=== PATIENT | female | born 1990 | race Caucasian/White ===

== ENCOUNTER → 2017-08-12 | Outpatient (CLI) | payer BC, MEDICAID ==
--- NOTE | 2017-08-12 16:22 | Diagnostic Imaging Report ---
First trimester OB ultrasound. INDICATION: Dating. FINDINGS: There is a normal-appearing single intrauterine . An embryo is seen with cardiac activity at 179 beats per minute. The crown-rump length is at 10 weeks and 6 days. LEIGHA is 03/04/2018. There is no subchorionic hemorrhage. The left ovary demonstrates a dominant follicle measuring 2.4 CM. The right ovary is obscured by bowel gas. IMPRESSION: Live single intrauterine . Dictated by: Dictated on workstation # [id number]
== END ==
LOC: RAD 15:43
PROVIDERS: ATTEND Family Medicine
DX: Z34.01 Encounter for supervision of normal first pregnancy, first trimester (principal); Z3A.10 10 weeks gestation of pregnancy
CPT/HCPCS: 76801

== ENCOUNTER 2017-08-27 08:34 | Outpatient (RCR) | payer MEDICAID | END 2017-11-25 | disposition home or self-care (01) | LOC: CARD 08:34 | PROVIDERS: ATTEND Nurse Practitioner Family | DX: R00.2 Palpitations (principal) | CPT/HCPCS: 93225; 93226 ==

== ENCOUNTER → 2017-10-10 | Outpatient (CLI) | payer MEDICAID ==
--- NOTE | 2017-10-10 16:35 | Diagnostic Imaging Report ---
EXAM: OB ULTRASOUND COMPLETE. INDICATION: 27-year-old female, high risk . survey. TECHNIQUE: Multiple real-time grayscale images were obtained over the gravid uterus. COMPARISON: Ultrasound August 12, 2017. FINDINGS: Overview: Within the uterus there is a single living gestation in cephalic position. There is positive movement and heart motion. heart rate was identified at 146 beats per minute. The amniotic fluid index is subjectively normal. The placenta is anterior and without demonstrated previa. The cervical length is 3.5 cm. anatomic survey: There is limited intracranial visualization. There is no ventriculomegaly. The lateral ventricles measure up to 6 mm in diameter. Somewhat limited longitudinal and transverse images of the spine are grossly unremarkable. There is visualization of the stomach, kidneys and urinary bladder. The cardiac apex and stomach are on the same side of midline. There is a normal four-chamber view of the heart. There is a three-vessel cord with an unremarkable insertion into the abdominal wall. 4 extremities are seen. The upper lip is not demonstrated. Biometrical measurements are as follows: Biparietal 4.4 cm, age 19 weeks 2 days. Head circumference 16.7 cm, age 19 weeks 3 days. Abdominal circumference 14.0 cm, age 19 weeks 3 days. Femur length 3.1 cm, age 19 weeks 4 days. Sonographic estimate age: 19 weeks 3 days. Sonographic estimated date of delivery: 03/03/18. Estimated Weight: 292 gm (+/- 43 gm). LMP percentile: 54%. heart rate: 146 beats per minute. number: 1 of 1. IMPRESSION: 1. Single living intrauterine with approximate mean gestational age of 19 weeks 3 days. 2. No demonstrated abnormality. Dictated by: Dictated on workstation # [id number]
== END ==
LOC: RAD 15:19
PROVIDERS: ATTEND Family Medicine
DX: Z36.89 Encounter for other specified antenatal screening (principal); O09.92 Supervision of high risk pregnancy, unspecified, second trimester; Z3A.19 19 weeks gestation of pregnancy
CPT/HCPCS: 76805

== ENCOUNTER → 2017-11-11 | Outpatient (CLI) | payer MEDICAID ==
--- NOTE | 2017-11-11 13:09 | Diagnostic Imaging Report ---
INDICATION: Followup intracranial structures, spine and lip. TECHNIQUE: Multiple real-time grayscale images were obtained over the gravid uterus. COMPARISON: 10/10/2017. FINDINGS: There is a single live fetus in a breech presentation. The placenta is anterior. The amniotic fluid volume is normal. heart rate was recorded at 143 beats per minute. head anatomy is unremarkable. The cervical and thoracic spine are unremarkable. Lumbar spine was not well visualized on today's study. Upper lip also was not well visualized due to hands obstructing visualization. IMPRESSION: No significant abnormality is seen, however, a lumbar spine as well as a upper lip was not well visualized, as described above. Followup could be performed. Dictated by: Dictated on workstation # [id number]
== END ==
LOC: RAD 11:56
PROVIDERS: ATTEND Family Medicine
DX: O09.92 Supervision of high risk pregnancy, unspecified, second trimester (principal); Z3A.23 23 weeks gestation of pregnancy
CPT/HCPCS: 76816

== ENCOUNTER → 2017-11-17 | Outpatient (CLI) | payer MEDICAID ==
--- NOTE | 2017-11-17 19:32 | Diagnostic Imaging Report ---
INDICATION: Cervix assessment. TECHNIQUE: Multiple real-time grayscale images were obtained over the gravid uterus. COMPARISON: None FINDINGS: Limited obstetrical ultrasonography reveals oliver breech intrauterine fetus. Placenta is grade 2 and anterior without evidence of previa. cardiac activity is present with a rate of 149 beats per minute. Cervical length is measured to be 3.7 cm. Limited anatomic survey reveals no evidence of spinal, lip, or palate abnormality. IMPRESSION: No or placental anomalies identified. Dictated on workstation # [id number]
== END ==
LOC: RAD 10:08
PROVIDERS: ATTEND Family Medicine
DX: O09.92 Supervision of high risk pregnancy, unspecified, second trimester (principal); Z3A.24 24 weeks gestation of pregnancy
CPT/HCPCS: 76816

== ENCOUNTER 2018-01-26 16:18 | Observation (INO) | payer MEDICAID ==
[~2018-01-26] VITALS: Ht 162.6 cm; Wt 68.0 kg
--- OUTSIDE RECORDS SUMMARY | 2018-01-26 16:22 | XMS REPORT | Continuity of Care Document ---
Author Author [facility] Organization [facility] Address Unknown Phone Unavailable Allergies Active Description Code Type Severity Reaction Onset Reported/Identified Relationship to Patient Clinical Status Yes No Known Drug Allergies [id number] Drug Allergy Unknown N/A 07/22/2014 Medications There is no data. Problems Date Dx Coded Attending Type Code Diagnosis Diagnosed By 2014 LATRELL BRADY MD A Ot 710.0 2014 LATRELL BRADY MD A Ot 780.2 2014 LATRELL BRADY MD A Ot 710.0 2014 LATRELL BRADY MD A Ot 780.2 2014 LATRELL BRADY MD A Ot 785.1 08/11/2014 LATRELL BRADY MD A Ot 710.0 08/11/2014 LATRELL BRADY MD A Ot 780.2 08/25/2014 CAITLYN ROMEO, LATRELL A Ot 710.0 08/25/2014 LATRELL BRADY MD A Ot 780.2 08/25/2014 LATRELL BRADY MD A Ot 710.0 08/25/2014 LATRELL BRADY MD A Ot 780.2 08/25/2014 LATRELL BRADY MD A Ot 710.0 08/25/2014 LATRELL BRADY MD A Ot 780.2 08/25/2014 LATRELL BRADY MD Ot 785.1 10/18/2014 LATRELL BRADY MD Ot 710.0 SYST LUPUS ERYTHEMATOSIS 10/18/2014 LATRELL BRADY MD Ot 780.2 SYNCOPE AND COLLAPSE 10/18/2014 LATRELL BRADY MD Ot 785.1 PALPITATIONS 11/02/2014 LATRELL BRADY MD Ot 710.0 11/02/2014 LATRELL BRADY MD Ot 780.2 11/02/2014 LATRELL BRADY MD Ot 710.0 11/02/2014 LATRELL BRADY MD A Ot 780.2 11/02/2014 LATRELL BRADY MD Ot 710.0 11/02/2014 CAITLYN ROMEO, LATRELL A Ot 780.2 11/02/2014 CAITLYN ROMEO, LATRELL A Ot 785.1 11/02/2014 CAITLYN ROMEO, LATRELL A Ot 710.0 11/02/2014 CAITLYN ROMEO, LATRELL A Ot 780.2 11/08/2014 CAITLYN ROMEO, LATRELL A Ot 710.0 11/08/2014 CAITLYN ROMEO, LATRELL A Ot 780.2 11/08/2014 CAITLYN ROMEO, LATRELL A Ot 710.0 11/08/2014 LATRELL BRADY MD A Ot 780.2 08/11/2017 LATRELL BRADY MD A Ot 710.0 SYST LUPUS ERYTHEMATOSIS 08/11/2017 LATRELL BRADY MD A Ot 780.2 SYNCOPE AND COLLAPSE 08/11/2017 LATRELL BRADY MD A Ot 710.0 SYST LUPUS ERYTHEMATOSIS 08/11/2017 LATRELL BRADY MD A Ot 780.2 SYNCOPE AND COLLAPSE 08/11/2017 LATRELL BRADY MD A Ot 710.0 SYST LUPUS ERYTHEMATOSIS 08/11/2017 LATRELL BRADY MD A Ot 780.2 SYNCOPE AND COLLAPSE 08/11/2017 LATRELL BRADY MD A Ot 785.1 PALPITATIONS 08/12/2017 LATRELL BRADY MD A Ot 710.0 SYST LUPUS ERYTHEMATOSIS 08/12/2017 LATRELL BRADY MD A Ot 780.2 SYNCOPE AND COLLAPSE 08/12/2017 LATRELL BRADY MD A Ot 710.0 SYST LUPUS ERYTHEMATOSIS 08/12/2017 LATRELL BRADY MD A Ot 780.2 SYNCOPE AND COLLAPSE 08/12/2017 LATRELL BRADY MD A Ot 710.0 SYST LUPUS ERYTHEMATOSIS 08/12/2017 LATRELL BRADY MD A Ot 780.2 SYNCOPE AND COLLAPSE 08/12/2017 LATRELL BRADY MD A Ot 785.1 PALPITATIONS 08/13/2017 PETROS WILSON MD Ot Z34.81 ENCOUNTER FOR SUPRVSN OF NORMAL PREGNANC 08/13/2017 PETROS WILSON MD Ot Z3A.10 10 WEEKS GESTATION OF 08/26/2017 LATRELL BRADY MD A Ot 710.0 SYST LUPUS ERYTHEMATOSIS 08/26/2017 LATRELL BRADY MD A Ot 780.2 SYNCOPE AND COLLAPSE 08/26/2017 LATRELL BRADY MD A Ot 710.0 SYST LUPUS ERYTHEMATOSIS 08/26/2017 LATRELL BRADY MD A Ot 780.2 SYNCOPE AND COLLAPSE 08/26/2017 LATRELL BRADY MD Ot 710.0 SYST LUPUS ERYTHEMATOSIS 08/26/2017 LATRELL BRADY MD A Ot 780.2 SYNCOPE AND COLLAPSE 08/26/2017 LATRELL BRADY MD Ot 785.1 PALPITATIONS 08/26/2017 PETROS WILSON MD Ot Z34.01 ENCNTR FOR SUPRVSN OF NORMAL FIRST PREG, 08/26/2017 PETROS WILSON MD Ot Z3A.10 10 WEEKS GESTATION OF 08/26/2017 PETROS WILSON MD Ot Z34.01 ENCNTR FOR SUPRVSN OF NORMAL FIRST PREG, 08/26/2017 PETROS WILSON MD Ot Z3A.10 10 WEEKS GESTATION OF 08/27/2017 LATRELL BRADY MD A Ot 710.0 SYST LUPUS ERYTHEMATOSIS 08/27/2017 LATRELL BRADY MD A Ot 780.2 SYNCOPE AND COLLAPSE 08/27/2017 LATRELL BRADY MD A Ot 710.0 SYST LUPUS ERYTHEMATOSIS 08/27/2017 LATRELL BRADY MD A Ot 780.2 SYNCOPE AND COLLAPSE 08/27/2017 LATRELL BRADY MD A Ot 710.0 SYST LUPUS ERYTHEMATOSIS 08/27/2017 LATRELL BRADY MD A Ot 780.2 SYNCOPE AND COLLAPSE 08/27/2017 LATRELL BRADY MD Ot 785.1 PALPITATIONS 08/27/2017 PETROS WILSON MD Ot Z34.01 ENCNTR FOR SUPRVSN OF NORMAL FIRST PREG, 08/27/2017 PETROS WILSON MD Ot Z3A.10 10 WEEKS GESTATION OF 08/28/2017 YASH FRAGA PUBLIC SERVICE OFFICER Ot R00.2 PALPITATIONS 08/28/2017 YASH FRAGA PUBLIC SERVICE OFFICER Ot R00.2 PALPITATIONS 10/10/2017 YASH FRAGA [employer] SERVICE OFFICER Ot R00.2 PALPITATIONS 10/13/2017 PETROS WILSON MD Ot O09.92 SUPERVISION OF HIGH RISK , [facility] 10/13/2017 PETROS WILSON MD Ot Z36.89 ENCOUNTER FOR OTHER SPECIFIED 10/13/2017 PETROS WILSON MD Ot Z3A.19 19 WEEKS GESTATION OF 10/22/2017 PETROS WILSON MD Ot O09.92 SUPERVISION OF HIGH RISK , [facility] 10/22/2017 PETROS WILSON MD Ot Z36.89 ENCOUNTER FOR OTHER SPECIFIED 10/22/2017 PETROS WILSON MD Ot Z3A.19 19 WEEKS GESTATION OF 11/12/2017 PETROS WILSON MD Ot O09.92 SUPERVISION OF HIGH RISK , [facility] 11/12/2017 PETROS WILSON MD Ot Z3A.23 23 WEEKS GESTATION OF 11/12/2017 PETROS WILSON MD Ot O09.92 SUPERVISION OF HIGH RISK , [facility] 11/12/2017 PETROS WILSON MD Ot Z3A.23 23 WEEKS GESTATION OF 11/17/2017 PETROS WILSON MD Ot O09.92 SUPERVISION OF HIGH RISK , [facility] 11/17/2017 PETROS WILSON MD Ot Z3A.23 23 WEEKS GESTATION OF 11/18/2017 PETROS WILSON MD Ot O09.92 SUPERVISION OF HIGH RISK , [facility] 11/18/2017 PETROS WILSON MD Ot Z3A.24 24 WEEKS GESTATION OF 11/25/2017 YASH FRAGA PUBLIC SERVICE OFFICER Ot R00.2 PALPITATIONS 11/26/2017 YASH FRAGA PUBLIC SERVICE OFFICER Ot R00.2 PALPITATIONS 11/28/2017 PETROS WILSON MD Ot O09.92 SUPERVISION OF HIGH RISK , [facility] 11/28/2017 PETROS WILSON MD Ot Z3A.23 23 WEEKS GESTATION OF 12/04/2017 PETROS WILSON MD Ot O09.92 SUPERVISION OF HIGH RISK , [facility] 12/04/2017 PETROS WILSON MD Ot Z3A.24 24 WEEKS GESTATION OF Procedures There is no data. Results There is no data. Encounters ACCT No. Visit Date/Time Discharge Status Pt. Type Provider Facility Loc./Unit Complaint [id number] 01/09/2018 12:31:00 01/09/2018 23:59:59 CLS Preadmit PETROS WILSON MD [facility] RAD HIGH RISK IN THIRD TRIMESTER [id number] 11/26/2017 08:30:00 11/26/2017 23:59:59 CLS Preadmit PHILLY YASH R [employer] SERVICE OFFICER [facility] CARD R00.2 [id number] 08/27/2017 08:34:00 11/25/2017 00:01:00 DIS Outpatient YASH FRAGA [employer] OFFICER [facility] CARD R00.2 [id number] 11/17/2017 10:08:00 11/17/2017 23:59:59 CLS Outpatient PETROS WILSON MD [facility] RAD O09.92 HIGH-RISK IN 2ND TRIMESTER [id number] 11/11/2017 11:56:00 11/11/2017 23:59:59 CLS Outpatient PETROS WILSON MD [facility] RAD HIGH RISK [id number] 10/10/2017 15:19:00 10/10/2017 23:59:59 CLS Outpatient PETROS WILSON MD [facility] RAD O09.92 HIGH RISK -2ND TRIMESTER [id number] 08/12/2017 15:43:00 08/12/2017 23:59:59 CLS Outpatient PETROS WILSON MD [facility] RAD Z34.00 [id number] 10/19/2014 10:00:00 10/19/2014 23:59:59 CLS Preadmit LATRELL BRADY MD [facility] CARD SYNCOPE,LUPUS [id number] 07/20/2014 09:53:00 10/18/2014 00:01:00 DIS Outpatient LATRELL BRADY MD [facility] CARD SYNCOPE,LUPUS [id number] 07/25/2014 07:56:00 07/25/2014 23:59:59 CLS Outpatient LATRELL BRADY MD [facility] RT SYNCOPE LUPUS [id number] 07/22/2014 07:46:00 07/22/2014 23:59:59 CLS Outpatient LATRELL BRADY MD [facility] RAD SYNCOPE LUPUS [id number] 02/02/2018 12:45:00 PETROS Narvaez MD [facility] RAD HIGH RISK THIRD TRIMESTER [id number] 01/26/2018 12:45:00 PETROS Narvaez MD [facility] RAD HIGH RISK THIRD TRIMESTER
[2018-01-26 16:30] VITALS: BP 126/74
[2018-01-26 17:26] LABS: HEMOGLOBIN 10.8 G/DL (11.5-16.0); MEAN PLATELET VOLUME 9.6 FL (7.4-10.4); RED BLOOD COUNT 3.71 10^6/uL (4.35-5.85); RED CELL DISTRIBUTION WIDTH 13.4 % (10.0-14.5); WHITE BLOOD COUNT 6.3 10^3/uL (4.3-11.0)
[2018-01-26] MEDS ORDERED: PREN-55 PO (17:45)
[2018-01-26] MEDS ORDERED: SERT25TA PO (17:45)
[2018-01-26 17:47] LABS: ALANINE AMINOTRANSFERASE 8 U/L (0-55); ALBUMIN 3.2 GM/DL (3.2-4.5); ALKALINE PHOSPHATASE 175 U/L (40-136); BILIRUBIN,TOTAL 0.4 MG/DL (0.1-1.0); BUN/CREATININE RATIO 12; CALCIUM 8.9 MG/DL (8.5-10.1); CARBON DIOXIDE 23 MMOL/L (21-32); CHLORIDE 108 MMOL/L (98-107); CREATININE SERUM 0.68 MG/DL (0.60-1.30); GFR ESTIMATED > 60; GLUCOSE 106 MG/DL (70-105); POTASSIUM 3.7 MMOL/L (3.6-5.0); SODIUM 136 MMOL/L (135-145); TOTAL PROTEIN 5.9 GM/DL (6.4-8.2)
[2018-01-26 19:42] VITALS: BP 119/73
[2018-01-27 08:15] VITALS: BP 123/71
--- NOTE | 2018-01-27 10:11 | Diagnostic Imaging Report ---
EXAMINATION: Biophysical profile. INDICATION: well-being. FINDINGS: The OB ultrasound exam and biophysical profile score performed on 01/26/2018 noted that the biophysical profile score was only 4 out of 8 as breathing and posture/tone could not be established. On this exam, the fetus is again visualized. The fetus is cephalic in presentation. heart motion was noted and a rate of 133 BPM was recorded. The biophysical profile score is now 8 out of 8 and within normal limits. The amniotic fluid index is 8.9 CM (normal 8-22 CM). The placenta is anterior and there is no previa. IMPRESSION: 1. The biophysical profile score has increased since the prior exam and is now 8 out of 8 and within normal limits. 2. There is a single live fetus is cephalic presentation. Dictated by: Dictated on workstation # [id number]
--- NOTE | 2018-01-27 10:44 | Short Stay Summary ---
History of Present Illness History of Present Illness Reason for visit/HPI G1 at 34w4d with history of inactive lupus admitted for observation due to non- reassuring BPP (12/28, no breathing or tone demonstrated). She has felt movement all morning and again after BPP but notes baby was still during time frame of BPP. NILDA was normal. Date of Admission January 26, 2018 at 4:18 pm Date of Discharge January 27, 2018 Time Seen by Provider: 14:00 Attending Physician Rosana Thorne MD Admitting Physician Marivel Sandoval DO Consult Allergies and Home Medications Allergies Coded Allergies: No Known Drug Allergies (Unverified , 07/22/14) Home Medications Vit/Iron Fumarate/FA 1 Each Tablet, 1 EACH PO DAILY, (Reported) Sertraline HCl 25 Mg Tablet, 25 MG PO DAILY, (Reported) Patient Home Medication List Home Medication List Reviewed: Yes Past Dnzxsxp-Bthnzi-Eqrubh Hx Patient Social History Alcohol Use: Denies Use Recreational Drug Use: No Smoking Status: Never a Smoker Physical Abuse Screen: No Sexual Abuse: No Recent Foreign Travel: No Contact w/other who traveled: No Recent Infectious Disease Expo: No Reproductive System : Yes Hx : 1 Hx Para: 0 Hx Reproductive Disorders: No Sexually Transmitted Disease: No HIV/AIDS: No Musculoskeletal Yes (Lupus) Psychosocial History of Psychiatric Problem: Yes Behavioral Health Disorders: Anxiety Family Medical History Significant Family History: No Pertinent Family Hx Constitutional: no symptoms reported Physical Exam Vital Signs Vital Signs - First Documented 01/26/18 01/27/18 16:30 08:15 Temp 98.9 Pulse 82 Resp 18 B/P (MAP) 126/74 (91) Pulse Ox 98 O2 Delivery Room Air Capillary Refill : General Appearance: No Apparent Distress Gastrointestinal: Other (gravid, nontender) Extremity: No Pedal Edema Neurologic/Psychiatric: Alert, Oriented x3 Skin: Normal Color, Warm/Dry Short Stay Diagnosis Discharge Diagnosis-Short Stay Admission Diagnosis: 34 weeks gestation/Third trimester Lupus Non-reassuring biophysical profile Final Discharge Diagnosis: 34 weeks gestation/Third trimester Lupus Reassuring overnight heart monitoring and normal Biophysical profile on am of discharge Conclusion Labs Laboratory Tests 01/26/18 17:15: White Blood Count 6.3, Red Blood Count 3.71L, Hemoglobin 10.8L, Hematocrit 31L, Mean Corpuscular Volume 84, Mean Corpuscular Hemoglobin 29, Mean Corpuscular Hemoglobin Concent 35, Red Cell Distribution Width 13.4, Platelet Count 238, Mean Platelet Volume 9.6, Sodium Level 136, Potassium Level 3.7, Chloride Level 108H, Carbon Dioxide Level 23, Anion Gap 5, Blood Urea Nitrogen 8, Creatinine 0.68, Estimat Glomerular Filtration Rate > 60, BUN/Creatinine Ratio 12, Glucose Level 106H, Calcium Level 8.9, Total Bilirubin 0.4, Aspartate Amino Transf (AST/ SGOT) 16, Alanine Aminotransferase (ALT/SGPT) 8, Alkaline Phosphatase 175H, Total Protein 5.9L, Albumin 3.2 Conclusion/Plan Monitoring unremarkable and repeat BPP normal, will continue weekly BPPs. Copy Copies To 1: PETROS WILSON MD, BETHANY N MD January 27, 2018 10:44 am
[2018-01-27 11:02] VITALS: BP 123/71
== END 2018-01-27 10:53 | disposition home or self-care (01) ==
LOC: UNDOADMOB 16:18 → LDRP 16:18 → UNDODISOB 01-27 11:02
PROVIDERS: ADMIT Family Medicine; ATTEND Family Medicine
DX: O28.3 Abnormal ultrasonic finding on antenatal screening of mother (principal); O26.893 Other specified pregnancy related conditions, third trimester; M32.9 Systemic lupus erythematosus, unspecified; Z3A.34 34 weeks gestation of pregnancy
CPT/HCPCS: 36415; 76819; 80053; 85027; 99211; G0378

== ENCOUNTER → 2018-01-26 | Outpatient (CLI) | payer MEDICAID ==
[~2018-01-26] MED LIST: IBUP-844 PO; PREN-55 PO; SERT25TA PO
--- NOTE | 2018-01-26 16:05 | Diagnostic Imaging Report ---
INDICATION: TECHNIQUE: Multiple real-time grayscale images were obtained over the gravid uterus. COMPARISON: 08/12/2017, 10/10/2017, 11/11/2017, and 11/17/2017. FINDINGS: The previous OB ultrasound exam of 11/17/2017 noted a single live fetus of approximately 24 weeks 5 days gestation +/- 1 week. The EDC was 03/04/2018. There were no abnormalities identified. On this exam, the fetus is again visualized. The fetus is cephalic in presentation and heart motion was noted with a rate of 146 bpm recorded. The growth parameters are fairly uniform and have progressed as expected since the prior study. There are no abnormalities identified. The biophysical profile score however is below normal limits at 4 out of 8. breathing and posture/tone could not be established. The amniotic fluid index is 9.8 (8-22 cm). IMPRESSION: 1. There is a single live fetus in cephalic presentation approximately 34 weeks 3 days gestation +/- 1 week. The EDC remains March 04, 2018. 2. There were no abnormalities identified, but the biophysical profile score is only 4/8. 3. These results were given to SHERON Ny, by our sonologist. Dictated by: Dictated on workstation # [id number]
== END ==
LOC: RAD 11:53
PROVIDERS: ATTEND Family Medicine
DX: O09.93 Supervision of high risk pregnancy, unspecified, third trimester (principal); Z3A.34 34 weeks gestation of pregnancy
CPT/HCPCS: 76805; 76819

== ENCOUNTER 2018-02-12 12:37 | Outpatient (RCR) | payer MEDICAID ==
--- NOTE | 2018-02-02 15:21 | Diagnostic Imaging Report ---
INDICATION: High-risk . FINDINGS: Biophysical profile was performed. There is a single live fetus in a cephalic presentation. heart rate was recorded at 134 beats per minute. Placenta is anterior. The amniotic fluid index is 8.9 cm. Overall biophysical profile score is normal at 8 out 8. IMPRESSION: Normal biophysical profile score 8 out of 8. Dictated by: Dictated on workstation # [id number]
[~2018-02-12 12:37] MED LIST changes: -IBUP-844 PO
--- NOTE | 2018-02-12 19:32 | Diagnostic Imaging Report ---
INDICATION: High-risk . FINDINGS: Biophysical profile was performed. There is a single live fetus in a cephalic presentation. heart rate is recorded at 146 beats per minute. The placenta is anterior. Amniotic fluid index is 6.7 cm. Biophysical profile score is normal at 8 out 8. IMPRESSION: Normal biophysical profile score of 8 out of 8. Note is made that the amniotic fluid index is slightly low at 6.7 cm. Results were called to Dr. Espinosa by the technologist at the time of the exam. Dictated by: Dictated on workstation # [id number]
--- NOTE | 2018-02-17 14:15 | Diagnostic Imaging Report ---
INDICATION: High-risk . FINDINGS: Biophysical profile was performed. There is a single live fetus in a cephalic presentation. heart rate is recorded at 135 beats per minute. The placenta is anterior. Amniotic fluid index is 7.2 cm. Biophysical profile score is 8 out of 8. IMPRESSION: biophysical profile score is 8 out of 8. Dictated by: Dictated on workstation # [id number]
[2018-02-25] MEDS ORDERED: IBUP-844 PO (10:33)
== END 2018-05-03 | disposition home or self-care (01) ==
LOC: RAD 12:37
PROVIDERS: ATTEND Family Medicine
DX: O09.93 Supervision of high risk pregnancy, unspecified, third trimester (principal); Z3A.00 Weeks of gestation of pregnancy not specified
CPT/HCPCS: 76819

== ENCOUNTER 2018-02-23 02:39 | Inpatient (IN) | payer MEDICAID ==
[~2018-02-23] VITALS: Ht 162.6 cm; Wt 73.0 kg
[2018-02-23] VITALS (52 sets, daily range): BP systolic 96–158; BP diastolic 54–102
[2018-02-23] MEDS ORDERED: MINERAL OIL CONCENTRATE 99.9% 15 ML UDC TOP PRN (03:15)
[2018-02-23] MEDS ORDERED: NS (IVPB) 100 ML ONE (03:30)
[2018-02-23] MEDS ORDERED: AMPICILLIN 2000 MG INJECTION (IM/IV) ONE (03:30)
[2018-02-23 03:37] LABS: BASOPHILS % (AUTO) 0 % (0-10); EOSINOPHILS % (AUTO) 0 % (0-10); HEMATOCRIT 33 % (35-52); HEMOGLOBIN 11.7 G/DL (11.5-16.0); LYMPHOCYTES % (AUTO) 26 % (12-44); MEAN CORPUSCULAR HEMOGLOBIN 30 PG (25-34); MEAN CORPUSCULAR HGB CONC 35 G/DL (32-36); MEAN CORPUSCULAR VOLUME 84 FL (80-99); MEAN PLATELET VOLUME 11.2 FL (7.4-10.4); MONOCYTES # (AUTO) 0.6 X 10^3 (0.0-1.0); MONOCYTES % (AUTO) 8 % (0-12); NEUTROPHILS % (AUTO) 65 % (42-75); PLATELET COUNT 214 10^3/uL (130-400); RED BLOOD COUNT 3.97 10^6/uL (4.35-5.85); RED CELL DISTRIBUTION WIDTH 13.4 % (10.0-14.5); WHITE BLOOD COUNT 7.6 10^3/uL (4.3-11.0)
[2018-02-23] MEDS: D5 LR IV SOLUTION 1,000 ML IV SCH ×2 (03:41→10:10)
[2018-02-23] MEDS: AMPICILLIN INJECTION 2,000 MG in NS (IVPB) 50 ML IV SCH ×2 (03:43→08:25)
[2018-02-23] MEDS ORDERED: LACTATED RINGERS 1,000 ML IV ONE (03:52)
[2018-02-23] MEDS ORDERED: LACTATED RINGERS 1,000 ML IV SCH (04:50)
[2018-02-23] MEDS ORDERED: METOCLOPRAMIDE INJ 10 MG/2 ML (REGLAN) IV PRN (05:00)
[2018-02-23] MEDS ORDERED: diphenhydrAMINE 50 MG/ML INJ (BENADRYL) IV PRN (05:00)
[2018-02-23] MEDS ORDERED: EPIDURAL (SUFENTA 0.6MCG/ML BUPIVA 0.125%) 100 ML BAG EPI SCH (05:00)
[2018-02-23] MEDS ORDERED: NALOXONE 0.4 MG/ML 1 ML (NARCAN) VIAL IV PRN ×2 (05:00)
[2018-02-23] MEDS ORDERED: ONDANSETRON 4 MG/2 ML (SDV) Z0FRAN IV PRN (05:00)
[2018-02-23] MEDS ORDERED: LIDOCAINE PF 2% 5 ML (XYLOCAINE) VIAL ONE (05:21)
[2018-02-23] MEDS ORDERED: BUPIVACAINE 0.25% 30 ML (SENSORCAINE) VIAL ONE (05:21)
[2018-02-23] MEDS ORDERED: fentaNYL INJECTION 100 MCG/2 ML AMP ONE (05:21)
[2018-02-23] MEDS ORDERED: CATHETER FLUSH 10 ML SYR IV SCH ×2 (06:00→22:00)
[2018-02-23] MEDS ORDERED: AMPICILLIN INJECTION 1,000 MG in NS (IVPB) 50 ML IV SCH (07:15)
--- NOTE | 2018-02-23 08:46 | History & Physical-OB ---
OB - Chief Complaint & HPI Date/Time Date of Admission: Date of Admission: Feb 23, 2018 at 03:10 Time Seen by Provider: 08:10 Chief Complaint/History OB-Reason for Admission/Chief: Rupture of Membranes Hx : 1 Hx Para: 0 Expected Date of Delivery: Mar 04, 2018 Gestational Age in Weeks: 38 Gestational Age in Days: 4 Admission Nurse Assessment Rev: Yes History of Labs O+, antibody neg, RI. HIV/HepB/RPR NR. GC/chlamydia neg. GBS bacteriuria. Normal cell free DNA testing. Normal glucola. History of inactive lupus not on medication- Negative lupus anticoagulant, anti-SSA, anti-SSB, cardiolipin and beta 2 glycoprotein. C3/C4 normal. Indeterminate dsDNA antibody. No significant proteinuria in each trimester and nml chem 12 each trimester. Allergies and Home Medications Allergies Coded Allergies: No Known Drug Allergies (Unverified , 07/22/14) Home Medications Vit/Iron Fumarate/FA 1 Each Tablet, 1 EACH PO DAILY, (Reported) Sertraline HCl 25 Mg Tablet, 25 MG PO DAILY, (Reported) Patient Home Medication List Home Medication List Reviewed: Yes OB - History Hx of Present Care: Yes Ultrasounds: Normal mid trimester US Obstetrical Complications: Autoimmune Disease (inactive lupus, not on treatment , see labs) Medical Complications: Psychiatric (despression, on sertraline) Information Induced Hypertension: No Maternal Gestational Diabetes: No Hemorrhage: No Obstetrical History Hx : 1 Hx Para: 0 Hx # Term Pregnancies: 0 Hx # Pregnancies: 0 Number of Living Children: 0 Hx Termination: No Hx Total # of Abortions (Spona: 0 Hx Multiple Gestation: No Hx Ectopic : No Hx Stillbirth: No Hx Complication: No Hx Induced Hypertens: No Hx Maternal Gestational Diabet: No Hx Hemorrhage: No Delivery History Adverse Rxn to Tranfusion: No Patient Past Medical History PMHx: Lupus Depression SugHx: Breast biopsy Social History/Family History HIV/AIDS: No Recent Infectious Disease Expo: No Sexually Transmitted Disease: No Alcohol Use: Denies Use Recreational Drug Use: No Smoking Cessation: Never smoker Significant Family Hx Father with chronic ITP Immunizations Tetanus Booster (TDap): Less than 5yrs Rubella: immune RPR/VDRL: Negative GBS Status: Positive HBsAG: Negative OB - Admission Exam Physical Exam Vitals: Vital Signs 02/23/18 02/23/18 06:15 07:00 Temp 98.0 Pulse 87 Resp 18 B/P (MAP) 109/64 (79) Pulse Ox 97 O2 Delivery Room Air HEENT: NCAT Abdomen: Non tender Extremities: Normal Cervical Dilatation: 7cm Effacement: Other Station: -2 Amniotic Fluid: Clear Heart Rate: 140's Accelerations: Accelerations Present Central Services Tech Variability: Average (6-25) Contractions on Admission: < 5 Minutes Apart Labs Laboratory Tests Test 02/23/18 03:20 Range/Units White Blood Count 7.6 4.3-11.0 10^3/uL Red Blood Count 3.97 L 4.35-5.85 10^6/uL Hemoglobin 11.7 11.5-16.0 G/DL Hematocrit 33 L 35-52 % Mean Corpuscular Volume 84 80-99 FL Mean Corpuscular Hemoglobin 30 25-34 PG Mean Corpuscular Hemoglobin Concent 35 32-36 G/DL Red Cell Distribution Width 13.4 10.0-14.5 % Platelet Count 214 130-400 10^3/uL Mean Platelet Volume 11.2 H 7.4-10.4 FL Neutrophils (%) (Auto) 65 42-75 % Lymphocytes (%) (Auto) 26 12-44 % Monocytes (%) (Auto) 8 0-12 % Eosinophils (%) (Auto) 0 0-10 % Basophils (%) (Auto) 0 0-10 % Neutrophils # (Auto) 5.0 1.8-7.8 X 10^3 Lymphocytes # (Auto) 2.0 1.0-4.0 X 10^3 Monocytes # (Auto) 0.6 0.0-1.0 X 10^3 Eosinophils # (Auto) 0.0 0.0-0.3 10^3/uL Basophils # (Auto) 0.0 0.0-0.1 10^3/uL OB - Assessment/Plan/Diagnosis Assessment Assessment: active labor, group B positive strep, other (systemic lupus erythematosus, depression) Admission Dx TIUP at 38 weeks SROM with active labor SLE Depression O positive blood type Rubella immune GBS positive (bacteriuria) Admission Status: Inpatient Order (span 2 midnights) Reason for Inpatient Admission: Labor and delivery Plan Plan: Expectant Management Other Plan Ampicillin for GBS positive See lab section for lupus work-up- negative for anti-SSA and anti-SSB and seen by MFM and recommended chem 12 and 24 hour urine protein each trimester- all normal, weekly BPP since 34 weeks normal (initial abnormal, all normal since, most recent 04/29 with NILDA 7.2 6 days ago) as well as growth scan q4-6 weeks, last done at 34 weeks and normal (34w3d by measurement, consistent with dates) Copy Copies To 1: PETROS WILSON MD, BETHANY N MD Feb 23, 2018 08:46
[2018-02-23] MEDS ORDERED: LIDOCAINE/EPI 2% 1:200,00 (XYLOCAINE) 10 ML VIAL ONE (11:06)
[2018-02-23] MEDS ORDERED: OXYTOCIN/NORMAL SALINE 500 ML IV ONE (11:06)
[2018-02-23] MEDS ORDERED: MISOPROSTOL 200 MCG (CYTOTEC) TABLET ONE ×2 (11:48→11:50)
--- NOTE | 2018-02-23 12:28 | OB Labor & Delivery Record ---
Vag Delivery Note Vag Delivery Note Date of Delivery: 02/23/18 Preoperative Diagnosis: Devorah Lund is a (27 /Para 1 / 0, Gestational Age (wks)38with 4days Postoperative Diagnosis: Same Surgeon: PETROS WILSON Anesthesia: epidural Delivery Type: spontaneous vaginal Findings: Viable female , apgars 8/9, weight pending Lacerations: second degree perineal Intact placenta with 3 vessel cord. No nuchal cord, body cord or shoulder dystocia Cytotec 600 mcg placed for hemorrhage prophylaxis Estimated Blood Loss: 350 ml Complications: None Condition: Stable Description of Procedure: The patient is a G1 at 38w4d who presented after SROM at home. She was admitted and informed consent was obtained. Her labor course was remarkable for terminal bradycardia. She progressed to complete dilatation and began to push. She was then set up for delivery. The infant had bradycardia and in spite of good maternal pushing effort and progressive descent of 's head, the infant did not deliver and remained bradycardic, so mediolateral episiotomy was cut, after which the infant's head was delivered atraumatically in the RASHAUN position. The shoulders and remainder of the infant's body were then delivered without difficulty. Upon delivery, the infant cried immediately and was placed on maternal abdomen, then had secondary apnea. The cord was doubly clamped and cut and the infant was spontaneously crying again at that time and was stable to remain on maternal chest for recovery. An intact placenta with 3-vessel cord delivered via Angelito and there was found to be minimal bleeding.~ Vigorous fundal massage was performed and the fundus was found to be firm. IV oxytocin was given. Examination of the vagina and perineum revealed a second degree laceration repaired in the usual fashion with 3-0 rapide suture. Following the repair, sponge, instrument and needle counts were correct. Mom and baby were both in stable condition in the labor suite. Vitals - Labs Vital Signs - I&O Vital Signs 02/23/18 02/23/18 06:15 07:00 Temp 98.0 Pulse 87 Resp 18 B/P (MAP) 109/64 (79) Pulse Ox 97 O2 Delivery Room Air Labs Laboratory Tests 02/23/18 03:20: White Blood Count 7.6, Red Blood Count 3.97L, Hemoglobin 11.7, Hematocrit 33L, Mean Corpuscular Volume 84, Mean Corpuscular Hemoglobin 30, Mean Corpuscular Hemoglobin Concent 35, Red Cell Distribution Width 13.4, Platelet Count 214, Mean Platelet Volume 11.2H, Neutrophils (%) (Auto) 65, Lymphocytes (%) (Auto) 26 , Monocytes (%) (Auto) 8, Eosinophils (%) (Auto) 0, Basophils (%) (Auto) 0, Neutrophils # (Auto) 5.0, Lymphocytes # (Auto) 2.0, Monocytes # (Auto) 0.6, Eosinophils # (Auto) 0.0, Basophils # (Auto) 0.0 PETROS WILSON MD Feb 23, 2018 12:28 pm
[2018-02-23] MEDS ORDERED: OXYTOCIN/NORMAL SALINE 500 ML IV SCH (15:18)
[2018-02-23] MEDS ORDERED: WITCH HAZEL(TUCKS) 40 EA JAR TOP PRN (15:30)
[2018-02-23] MEDS ORDERED: BENZOCAINE/MENTHOL (DERMOPLAST) 56 ML CAN TP PRN (15:30)
[2018-02-23] MEDS ORDERED: MISOPROSTOL 200 MCG (CYTOTEC) TABLET PR NR (15:30)
[2018-02-23] MEDS: IBUPROFEN 600 MG (MOTRIN) TAB PO SCH ×2 (15:50→20:57)
[2018-02-24] VITALS: BP 133/73
[2018-02-24] MEDS: IBUPROFEN 600 MG (MOTRIN) TAB PO SCH ×4 (02:19→19:51)
[2018-02-24 04:30] VITALS: BP 131/84
[2018-02-24 06:09] LABS: BASOPHILS % (AUTO) 0 % (0-10); EOSINOPHILS % (AUTO) 0 % (0-10); HEMATOCRIT 31 % (35-52); HEMOGLOBIN 10.1 G/DL (11.5-16.0); LYMPHOCYTES % (AUTO) 27 % (12-44); MEAN CORPUSCULAR HEMOGLOBIN 29 PG (25-34); MEAN CORPUSCULAR HGB CONC 33 G/DL (32-36); MEAN CORPUSCULAR VOLUME 87 FL (80-99); MEAN PLATELET VOLUME 10.8 FL (7.4-10.4); MONOCYTES # (AUTO) 0.4 X 10^3 (0.0-1.0); MONOCYTES % (AUTO) 6 % (0-12); NEUTROPHILS # (AUTO) 5.1 X 10^3 (1.8-7.8); NEUTROPHILS % (AUTO) 67 % (42-75); PLATELET COUNT 164 10^3/uL (130-400); RED BLOOD COUNT 3.52 10^6/uL (4.35-5.85); RED CELL DISTRIBUTION WIDTH 13.9 % (10.0-14.5); WHITE BLOOD COUNT 7.5 10^3/uL (4.3-11.0)
[2018-02-24 08:20] VITALS: BP 130/86
[2018-02-24] MEDS: PRENATAL VITAMIN 1 EA TAB PO SCH (08:22)
[2018-02-24] MEDS: SERTRALINE 50 MG (ZOLOFT) TABLET PO SCH (08:24)
[2018-02-24] MEDS ORDERED: NON-FORMULARY MEDICATION 1 EA EA (Sertraline HCl (Zoloft) 25 MG) PO SCH (09:00)
[2018-02-24] MEDS ORDERED: NON-FORMULARY MEDICATION 1 EA EA (Prenatal Vit/Iron Fumarate/FA (Prenatal Tablet) 1 EACH) PO SCH (09:00)
--- NOTE | 2018-02-24 12:14 | Anesthesia-Regional Post-Op ---
Regional Patient Condition Mental Status: Alert, Oriented x3 Circulation: Same as Pre-Op Headache: Absent Sensation: Full Recovery Motor Block: Absent Post Op Complications Complications None Follow Up Care/Instructions Patient Instructions None needed. Anesthesia/Patient Condition Patient is doing well, no complaints, stable vital signs, no apparent adverse anesthesia problems. No complications reported per nursing. D/C home per [facility] [place] Criteria: No JUANPABLO HOLLINS CRNA Feb 24, 2018 12:14
[2018-02-24 14:45] VITALS: BP 127/76
[2018-02-24 19:51] VITALS: BP 126/79
--- NOTE | 2018-02-24 22:38 | Progress Note (SOAP) ---
Subjective Subjective/Events-last exam Mother doing well this AM. Breast feeding this AM. Lochia same as period. Tolerating PO diet and ambulation Review of Systems Date Seen by Provider: Feb 24, 2018 Time Seen by Provider: 11:20 Pulmonary: No Dyspnea, No Cough Cardiovascular: No: Chest Pain, Palpitations Gastrointestinal: No: Abdominal Pain Genitourinary: No Dysuria, No Frequency, No Incontinence Objective Exam Last Set of Vital Signs Vital Signs Date Time Temp Pulse Resp B/P (MAP) Pulse Ox O2 Delivery O2 Flow Rate FiO2 02/24/18 19:51 98.6 107 18 126/79 (95) 100 Room Air Capillary Refill : I&O Intake and Output 02/24/18 00:00 Intake Total 500 ml Output Total 1000 ml Balance -500 ml Intake Oral 500 ml Output Emesis 1000 ml # Voids 2 # Emeses 4 Daily Weight Change No General: Alert, Oriented X3, Cooperative, No Acute Distress HEENT: Mucous Memb Moist/[place] Lungs: Clear to Auscultation, Normal Air Movement Heart: Regular Rate, No Murmurs Abdomen: Normal Bowel Sounds, Soft, Other (fundus firm and below umbilicus) Extremities: No Edema Results/Procedures Lab Laboratory Tests 02/24/18 05:55: White Blood Count 7.5, Red Blood Count 3.52L, Hemoglobin 10.1L, Hematocrit 31L, Mean Corpuscular Volume 87, Mean Corpuscular Hemoglobin 29, Mean Corpuscular Hemoglobin Concent 33, Red Cell Distribution Width 13.9, Platelet Count 164, Mean Platelet Volume 10.8H, Neutrophils (%) (Auto) 67, Lymphocytes (%) (Auto) 27 , Monocytes (%) (Auto) 6, Eosinophils (%) (Auto) 0, Basophils (%) (Auto) 0, Neutrophils # (Auto) 5.1, Lymphocytes # (Auto) 2.0, Monocytes # (Auto) 0.4, Eosinophils # (Auto) 0.0, Basophils # (Auto) 0.0 Assessment/Plan Assessment/Plan Admission Status: Inpatient Order (span 2 midnights) Reason for Inpatient Admission: Labor (1) Normal vaginal delivery Status: Acute Assessment & Plan: - Routine care Clinical Quality Measures DVT/VTE Risk/Contraindication: Risk Factor Score Per Nursin RFS Level Per Nursing on Admit: 1=Low/No VTE PPX LATRELL BAUM MD Feb 24, 2018 10:38 pm
[2018-02-25 01:50] VITALS: BP 127/81
[2018-02-25] MEDS: IBUPROFEN 600 MG (MOTRIN) TAB PO SCH (04:36)
[2018-02-25 09:05] VITALS: BP 126/78
[2018-02-25] MEDS: SERTRALINE 50 MG (ZOLOFT) TABLET PO SCH (09:05)
[2018-02-25] MEDS: PRENATAL VITAMIN 1 EA TAB PO SCH (09:05)
--- NOTE | 2018-02-25 10:27 | Discharge Summary ---
Diagnosis/Chief Complaint Date of Admission Feb 23, 2018 at 03:10 Date of Discharge [address] Admission Diagnosis Admission Diagnosis Term Labor Discharge Diagnosis Uncomplicated Term , G2 now P2, HIV/RPR/HepB NR, Rub Imm Chief Complaint/HPI Chief Complaint/HPI Presented in active labor Discharge Summary-Simple/Stand Procedures Discharge Physical Examination Allergies: Coded Allergies: No Known Drug Allergies (Unverified , 07/22/14) Vitals & I&Os Vital Sign - Last 12Hours Date Time Temp Pulse Resp B/P (MAP) Pulse Ox O2 Delivery O2 Flow Rate FiO2 02/25/18 01:50 97.9 80 18 127/81 (96) 100 Room Air General Appearance: Alert, Oriented X3, Cooperative, No Acute Distress HEENT: Mucous Memb Moist/[place] Respiratory: Clear to Auscultation, Normal Air Movement Cardiovascular: Regular Rate, No Murmurs Abdominal: Normal Bowel Sounds, Soft, No Tenderness, No Hepatosplenomegaly, No Masses, Other (firm fundus below umbilicus) Extremities: No Edema, No Tenderness/Swelling Psych/Mental Status: Mental Status NL, Mood NL Hospital Course See final discharge diagnosis. Discussion & Recommendations 27 yo delivered term female via Discharge Condition at discharge stable Instructions to patient/family Please see electronic discharge instructions given to patient. Discharge Medications Reviewed and agree with Discharge Medication list on patient's Discharge Instruction sheet Clinical Quality Measures DVT/VTE Risk/Contraindication: Risk Factor Score Per Nursin RFS Level Per Nursing on Admit: 1=Low/No VTE PPX Copy Copies To 1: PETROS WILSON MD, HOLLY R MD Feb 25, 2018 10:27
[2018-02-25] MEDS ORDERED: IBUP-844 PO (10:33)
--- NOTE | 2018-02-25 10:37 | Discharge Instructions ---
Discharge Inst-Women's Serv Depart Medications New, Converted or Re-Newed RX: Transmitted to Pharmacy New Medications: Ibuprofen (Ibu) 600 Mg Tablet 600 MG PO Q6H, #90 TAB Continued Medications: Vit/Iron Fumarate/FA ( Tablet) 1 Each Tablet 1 EACH PO DAILY, TAB Sertraline HCl (Zoloft) 25 Mg Tablet 25 MG PO DAILY, TAB Follow Up/Instructions Goal/Follow Up: [address] [place] Activity Activity: Activity as Tolerated Driving Instructions: You May Drive Nothing Inside Vagina: No Douching, No [place], No Tampons Diet Discharge Diet: No Restrictions Symptoms to Report to : Bleeding Excessive, Lightheadedness, Shortness of Breath For Any Problems or Questions: Contact Your Physician Copies To 1: PETROS WILSON MD, HOLLY R MD Feb 25, 2018 10:37
== END 2018-02-25 13:20 | disposition home or self-care (01) | DRG 775 ==
LOC: LDRP 02:39 → WSo 02:39 → LDRP 03:10
PROVIDERS: ADMIT Family Medicine; ATTEND Family Medicine
PROC: 10E0XZZ Delivery of Products of Conception, External Approach (ICD-10-PCS; principal; 2018-02-23)
PROC: 0KQM0ZZ Repair Perineum Muscle, Open Approach (ICD-10-PCS; 2018-02-23)
DX: O70.1 Second degree perineal laceration during delivery (principal); Z37.0 Single live birth; O99.824 Streptococcus B carrier state complicating childbirth; O26.893 Other specified pregnancy related conditions, third trimester; M32.9 Systemic lupus erythematosus, unspecified; O99.344 Other mental disorders complicating childbirth; F32.9 Major depressive disorder, single episode, unspecified; Z3A.38 38 weeks gestation of pregnancy
CPT/HCPCS: 36415; 85025; 86850; 86900; 86901; 88307; 99212

== ENCOUNTER 2019-10-02 11:17 | Emergency (ER) | payer MEDICAID ==
[~2019-10-02] VITALS: Ht 162 cm; Wt 66.0 kg
[~2019-10-02 11:17] MED LIST changes: +IBUP-844 PO
[2019-10-02 11:50] LABS: BILIRUBIN,URINE NEGATIVE (NEGATIVE); CLARITY,URINE CLEAR; COLOR,URINE YELLOW; GLUCOSE, URINE (UA) NEGATIVE (NEGATIVE); KETONES,URINE NEGATIVE (NEGATIVE); LEUKOCYTE ESTERASE ,URINE NEGATIVE (NEGATIVE); NITRITE,URINE NEGATIVE (NEGATIVE); PH,URINE 7.5 (5-9); PROTEIN,URINE NEGATIVE (NEGATIVE)
[2019-10-02 11:59] LABS: BACTERIA,URINE NEGATIVE /HPF; SQUAMOUS EPITHELIAL CELL,UR 0-2 /HPF
--- NOTE | 2019-10-02 12:03 | ED GU-Female ---
General Chief Complaint: Abdominal/GI Problems Stated Complaint: ABD PAIN - 19 WKS PREG Nursing Triage Note: PT CO OF UPPER ABD PAIN STARTED THIS AM. PT STATES RATES PAIN 7/10. PT IS 19WEEKS 2 DAYS . PT FEELS BABY MOVING. Nursing Sepsis Screen: No Definite Risk Source: patient Exam Limitations: no limitations History of Present Illness Date Seen by Provider: Oct 02, 2019 Time Seen by Provider: 12:02 Initial Comments 29 yo female patient presents for c/o intermittent epigastric abdominal pain over the last 2 weeks. Pain was much worse this a.m.. Pain is a 7/10 when it is present. Pain is burning in crampy in nature and is worse with reclining and lying flat. She is unsure if the pain is worse with eating or drinking. She denies having anything to eat this morning. She has had some fluids without difficulty. Mild nausea without vomiting this a.m. Patient is 19 wks 2 days gestation and reports feeling movement. Patient does report having IV fluids at dr. Wilson's office earlier this week for a migraine with symptoms residing completely. Timing/Duration: intermittent, other (two-week onset. Improved.) Severity/Quality: burning, cramping Location: other (epigastric) Radiation: none Activities at Onset: other (reclined) Prior Genitourinary Problems: none Sexual [place] History: less than 2 months ago, single partner Modifying Factors: Worsens With Lying down (and with reclining) Allergies and Home Medications Allergies Coded Allergies: No Known Drug Allergies (Unverified , 07/22/14) Home Medications Famotidine 20 Mg Tablet, 20 MG PO BID Prescribed by: JENNIFER TRACY on 10/02/19 1318 Ibuprofen 600 Mg Tablet, 600 MG PO Q6H Prescribed by: LATRELL BAUM on 02/25/18 1033 Vit/Iron Fumarate/FA 1 Each Tablet, 1 EACH PO DAILY, (Reported) Sertraline HCl 25 Mg Tablet, 25 MG PO DAILY, (Reported) Patient Home Medication List Home Medication List Reviewed: Yes Review of Systems Review of Systems Constitutional: No chills, No diaphoresis, No dizziness, No fever, No malaise EENTM: no symptoms reported Respiratory: No cough, No dyspnea on exertion, No orthopnea, No phlegm, No short of breath, No wheezing Cardiovascular: No chest pain, No edema, No palpitations, No syncope Gastrointestinal: see HPI, abdominal pain (epigastric pain); No constipation, No diarrhea, No dysphagia, No hematemesis; heartburn; No jaundice, No melena; nausea; No vomiting Genitourinary: denies burning, denies discharge, denies dysuria, denies frequency, denies flank pain, denies hematuria, denies pain, denies other (denies vaginal bleeding) Expected Date of Delivery: Feb 24, 2020 Musculoskeletal: No back pain Skin: no symptoms reported Psychiatric/Neurological: No Symptoms Reported Endocrine: No Symptoms Reported All Other Systemes Reviewed Negative Unless Noted: Yes (Negative excepted noted.) Past Awfwvog-Kllefp-Bajpsa Hx Past Med/Social Hx: Reviewed Nursing Past Med/Soc Hx, Reviewed and Corrections made Patient Social History Alcohol Use: Denies Use Recreational Drug Use: No Smoking Status: Never a Smoker Recent Foreign Travel: No Contact w/Someone Who Travel: No Recent Infectious Disease Expo: No Recent Hopitalizations: No (monitoring overnight) Immunizations Up To Date Tetanus Booster (TDap): Less than 5yrs Seasonal Allergies Seasonal Allergies: No Past Medical History Surgeries: Yes Respiratory: No Cardiac: No Neurological: No : Yes Expected Date of Delivery: Feb 24, 2020 Last Menstrual Period: May 20, 2019 Hx : 2 Hx Para: 1 Hx Total # of Abortions (Sp): 0 Reproductive Disorders: No Female Reproductive Disorders: Denies Sexually Transmitted Disease: No HIV/AIDS: No Genitourinary: No Gastrointestinal: No Musculoskeletal: No Endocrine: Yes HEENT: No Cancer: No Psychosocial: Yes Anxiety, Depression Integumentary: No Blood Disorders: Yes (anemia) Adverse Reaction/Blood Tranf: No Family Medical History Reviewed Nursing Family Hx Diabetes mellitus 19 MOTHER Hypertension 19 FATHER 19 MOTHER Neoplasm 19 FATHER No Pertinent Family Hx Physical Exam Vital Signs Vital Signs - First Documented 10/02/19 11:25 Temp 36.8 Pulse 93 Resp 18 B/P (MAP) 135/76 (95) Capillary Refill : Less Than 3 Seconds Height, Weight, BMI Height: 5'4.00" Weight: 161lbs. 0.0oz. 73.935022az; 25.00 BMI Method: General Appearance: WD/WN, no apparent distress HEENT: PERRL/EOMI, pharynx normal Neck: supple, normal inspection Cardiovascular: normal peripheral pulses, regular rate, rhythm, no edema, no gallop, no JVD, no murmur Respiratory: lungs clear, normal breath sounds, no respiratory distress, no accessory muscle use Gastrointestinal: normal bowel sounds, soft, no pulsatile mass; No distended, No guarding, No rebound; tenderness (very mild epigastric tenderness), other (uterinomegaly with a fundal height consistent with 19 weeks gestation) Back: normal inspection, no CVA tenderness Extremities: no pedal edema, no calf tenderness, normal capillary refill Neurologic/Psychiatric: alert, normal mood/affect, oriented x 3 Skin: normal color, warm/dry Progress/Results/Core Measures Suspected Sepsis Recent Fever Within 48 Hours: No Infection Criteria Present: None New/Unexplained Altered Menta: No Sepsis Screen: No Definite Risk SIRS Temperature: Pulse: 93 Respiratory Rate: 18 Laboratory Tests 10/02/19 12:23: White Blood Count 5.4 Blood Pressure 135 /76 Mean: 95 Laboratory Tests 10/02/19 12:23: Creatinine 0.69, Platelet Count 201, Total Bilirubin 0.2 Results/Orders Lab Results Laboratory Tests Test 10/02/19 11:36 10/02/19 12:23 Range/Units Urine Color YELLOW Urine Clarity CLEAR Urine pH 7.5 5-9 Urine Specific [place] 1.015 L 1.016-1.022 Urine Protein NEGATIVE NEGATIVE Urine Glucose (UA) NEGATIVE NEGATIVE Urine Ketones NEGATIVE NEGATIVE Urine Nitrite NEGATIVE NEGATIVE Urine Bilirubin NEGATIVE NEGATIVE Urine Urobilinogen 0.2 < = 1.0 MG/DL Urine Leukocyte Esterase NEGATIVE NEGATIVE Urine RBC (Auto) NEGATIVE NEGATIVE Urine RBC NONE /HPF Urine WBC NONE /HPF Urine Squamous Epithelial Cells 0-2 /HPF Urine Crystals NONE /LPF Urine Bacteria NEGATIVE /HPF Urine Casts NONE /LPF Urine Mucus NEGATIVE /LPF Urine Culture Indicated NO White Blood Count 5.4 4.3-11.0 10^3/uL Red Blood Count 3.89 L 4.35-5.85 10^6/uL Hemoglobin 11.2 L 11.5-16.0 G/DL Hematocrit 33 L 35-52 % Mean Corpuscular Volume 85 80-99 FL Mean Corpuscular Hemoglobin 29 25-34 PG Mean Corpuscular Hemoglobin Concent 34 32-36 G/DL Red Cell Distribution Width 14.0 10.0-14.5 % Platelet Count 201 130-400 10^3/uL Mean Platelet Volume 9.6 7.4-10.4 FL Neutrophils (%) (Auto) 72 42-75 % Lymphocytes (%) (Auto) 22 12-44 % Monocytes (%) (Auto) 5 0-12 % Eosinophils (%) (Auto) 0 0-10 % Basophils (%) (Auto) 0 0-10 % Neutrophils # (Auto) 3.9 1.8-7.8 X 10^3 Lymphocytes # (Auto) 1.2 1.0-4.0 X 10^3 Monocytes # (Auto) 0.3 0.0-1.0 X 10^3 Eosinophils # (Auto) 0.0 0.0-0.3 10^3/uL Basophils # (Auto) 0.0 0.0-0.1 10^3/uL Sodium Level 137 135-145 MMOL/L Potassium Level 4.0 3.6-5.0 MMOL/L Chloride Level 105 98-107 MMOL/L Carbon Dioxide Level 19 L 21-32 MMOL/L Anion Gap 13 5-14 MMOL/L Blood Urea Nitrogen 5 L 7-18 MG/DL Creatinine 0.69 0.60-1.30 MG/DL Estimat Glomerular Filtration Rate > 60 BUN/Creatinine Ratio 7 Glucose Level 88 70-105 MG/DL Calcium Level 9.0 8.5-10.1 MG/DL Corrected Calcium 9.1 8.5-10.1 MG/DL Total Bilirubin 0.2 0.1-1.0 MG/DL Aspartate Amino Transf (AST/SGOT) 14 5-34 U/L Alanine Aminotransferase (ALT/SGPT) 10 0-55 U/L Alkaline Phosphatase 62 40-136 U/L C-Reactive Protein High Sensitivity 1.93 H 0.00-0.50 MG/DL Total Protein 6.8 6.4-8.2 GM/DL Albumin 3.9 3.2-4.5 GM/DL Lipase 17 8-78 U/L Aileen Pena - JENNIFER TRACY Ed Iv/Invasive Line Start (10/02/19 12:13) Ns Iv 1000 Ml (Sodium Chloride 0.9%) (10/02/19 12:13) Ondansetron Injection (Zofran Injectio (10/02/19 12:15) Lidocaine 2% Viscous 15 Ml (Xylocaine Vi (10/02/19 12:15) Antacid Suspension (Mylanta Suspension (10/02/19 12:15) Cbc With Automated Diff (10/02/19 12:13) Comprehensive Metabolic Panel (10/02/19 12:13) Hs C Reactive Protein (10/02/19 12:13) Lipase (10/02/19 12:13) Medications Given in ED Current Medications Medications Dose Ordered Sig/Karrie Route Start Time Stop Time Status Last Admin Dose Admin Al Hydrox/Mg Hydrox/Simethicone 30 ml ONCE ONCE PO 10/02/19 12:15 10/02/19 12:16 DC 10/02/19 12:24 30 ML Lidocaine HCl 15 ml ONCE ONCE PO 10/02/19 12:15 10/02/19 12:16 DC 10/02/19 12:23 15 ML Ondansetron HCl 4 mg ONCE ONCE IVP 10/02/19 12:15 10/02/19 12:16 DC 10/02/19 12:23 4 MG Sodium Chloride 1,000 ml @ 0 mls/hr Q0M ONCE IV 10/02/19 12:13 10/02/19 12:15 DC 10/02/19 12:23 1,000 MLS/HR Vital Signs/I&O 10/02/19 11:25 Temp 36.8 Pulse 93 Resp 18 B/P (MAP) 135/76 (95) Capillary Refill : Less Than 3 Seconds Blood Pressure Mean: 95 Departure Communication (Admissions) Patient seen and evaluated. Initial labs and urinalysis obtained. Patient was given a GI cocktail, Zofran, and 1 L of IV fluids. Patient reports resolution of the symptoms with the GI cocktail. Plan for discharge to home with follow-up on Friday as previously scheduled with Dr. Wilson. Impression Primary Impression: GERD (gastroesophageal reflux disease) Qualified Codes: K21.9 - Gastro-esophageal reflux disease without esophagitis Additional Impression: 19 weeks gestation of Disposition: HOME, SELF-CARE Condition: Improved Departure-Patient Inst. Decision time for Depature: 13:16 Referrals: PETROS WILSON MD (PCP/Family) Primary Care Physician Patient Instructions: Acid Reflux (Gastroesophageal Reflux Disease) During Add. Discharge Instructions: All discharge instructions reviewed with patient and/or family. Voiced understanding. Medications as instructed. Mylanta [id number] as directed for breakthrough symptoms. Tylenol [id number] as needed. No NSAIDs including Motrin, Aleve, or aspirin during your . Avoid spicy foods, fatty foods, carbonated beverages, and caffeine. Do not eat within 2 hours of lying down. Elevate the head of your bed or use a wedge pillow if needed. Follow-up with Dr. Wilson on Friday as previously scheduled. Return to the emergency department for worsened symptoms, vomiting, rectal bleeding, black stools, abdominal swelling, fever, or any other concerns. Scripts Famotidine (Pepcid) 20 Mg Tablet 20 MG PO BID, #30 TAB 0 Refills Prov: JENNIFER TRACY 10/02/19 Copy Copies To 1: PETROS WILSON MD, GRETCHEN L PA Oct 02, 2019 12:03
[2019-10-02] MEDS ORDERED: NS IV 1000 ML 1,000 ML IV ONE (12:13)
[2019-10-02] MEDS ORDERED: LIDOCAINE 2% VISCOUS 15 ML UDC PO ONE (12:15)
[2019-10-02] MEDS ORDERED: ONDANSETRON 4 MG/2 ML (SDV) Z0FRAN IVP ONE (12:15)
[2019-10-02] MEDS ORDERED: ANTACID SUSP 30 ML UDC (MYLANTA) PO ONE (12:15)
[2019-10-02 12:32] LABS: BASOPHILS % (AUTO) 0 % (0-10); EOSINOPHILS % (AUTO) 0 % (0-10); HEMATOCRIT 33 % (35-52); HEMOGLOBIN 11.2 G/DL (11.5-16.0); LYMPHOCYTES # (AUTO) 1.2 X 10^3 (1.0-4.0); LYMPHOCYTES % (AUTO) 22 % (12-44); MEAN CORPUSCULAR HEMOGLOBIN 29 PG (25-34); MEAN CORPUSCULAR HGB CONC 34 G/DL (32-36); MEAN CORPUSCULAR VOLUME 85 FL (80-99); MEAN PLATELET VOLUME 9.6 FL (7.4-10.4); MONOCYTES # (AUTO) 0.3 X 10^3 (0.0-1.0); MONOCYTES % (AUTO) 5 % (0-12); NEUTROPHILS # (AUTO) 3.9 X 10^3 (1.8-7.8); NEUTROPHILS % (AUTO) 72 % (42-75); PLATELET COUNT 201 10^3/uL (130-400); WHITE BLOOD COUNT 5.4 10^3/uL (4.3-11.0)
[2019-10-02 13:06] LABS: ALANINE AMINOTRANSFERASE 10 U/L (0-55); ALBUMIN 3.9 GM/DL (3.2-4.5); ALKALINE PHOSPHATASE 62 U/L (40-136); BILIRUBIN,TOTAL 0.2 MG/DL (0.1-1.0); BUN/CREATININE RATIO 7; CARBON DIOXIDE 19 MMOL/L (21-32); CHLORIDE 105 MMOL/L (98-107); CREATININE SERUM 0.69 MG/DL (0.60-1.30); GFR ESTIMATED > 60; GLUCOSE 88 MG/DL (70-105); LIPASE 17 U/L (8-78); SODIUM 137 MMOL/L (135-145); TOTAL PROTEIN 6.8 GM/DL (6.4-8.2)
[2019-10-02] MEDS ORDERED: FAMO-119 PO (13:18)
[2019-10-02 13:30] VITALS: BP 126/70
== END 2019-10-02 13:30 | disposition home or self-care (01) ==
LOC: EDUNIT# 11:17 → ER 11:19
DX: O99.612 Diseases of the digestive system complicating pregnancy, second trimester (principal); K21.9 Gastro-esophageal reflux disease without esophagitis; O99.342 Other mental disorders complicating pregnancy, second trimester; F41.9 Anxiety disorder, unspecified; F32.9 Major depressive disorder, single episode, unspecified; O99.012 Anemia complicating pregnancy, second trimester; Z82.49 Family history of ischemic heart disease and other diseases of the circulatory system; Z3A.19 19 weeks gestation of pregnancy
CPT/HCPCS: 36415; 80053; 81000; 83690; 84703; 85025; 86141

== ENCOUNTER 2020-02-11 22:12 | Inpatient (IN) | payer MEDICAID ==
[~2020-02-11] VITALS: Ht 162.6 cm; Wt 82.3 kg
[2020-02-11] VITALS (9 sets, daily range): BP systolic 122–148; BP diastolic 68–93
[~2020-02-11 22:12] MED LIST changes: +FAMO-119 PO
--- NOTE | 2020-02-11 22:19 | NUR ---
AKHIL MCALLISTER 37/ presented to unit via from ED, accompanied by , with c/o CONTRACTIONS. AKHIL MCALLISTER weighed, gowned, voided, and to bed. EFHM and TOCO applied, VS taken. AKHIL MCALLISTER oriented to bed controls, call light, TV, heat, and A/C controls.
[2020-02-11] MEDS ORDERED: WATER (STERILE) FOR INJECTION 20 ML ONE (22:24)
[2020-02-11] MEDS ORDERED: AMPICILLIN FOR IV USE 2,000 MG VIAL ONE (22:24)
[2020-02-11] MEDS ORDERED: D5 LR IV SOLUTION 1,000 ML IV ONE (22:25)
[2020-02-11] MEDS ORDERED: ONDANSETRON 4 MG/2 ML (SDV) Z0FRAN ONE (22:41)
--- NOTE | 2020-02-11 22:41 | NUR ---
Dr. Espinosa called with report of pt. states that pt can get epidural if she wants it and can get it in time. states that pt. should be treated with Ampicillin 2g bolus then 1g q for until delivery for GBS positive status.
[2020-02-11] MEDS ORDERED: fentaNYL 2 mcg/ml BUPIVA 0.125 100 ML ONE (22:42)
[2020-02-11] MEDS ORDERED: fentaNYL INJECTION 100 MCG/2 ML AMP ONE ×2 (22:43→23:39)
[2020-02-11] MEDS ORDERED: D5 LR IV SOLUTION 1,000 ML IV SCH (22:48)
[2020-02-11] MEDS ORDERED: OXYTOCIN PRE-MIX DRIP 500 ML IV SCH (22:48)
[2020-02-11] MEDS ORDERED: AMPICILLIN FOR IV USE 1,000 MG in WATER (STERILE) FOR INJECTION 7.4 ML IV SCH (23:00)
[2020-02-11 23:07] LABS: BASOPHILS % (AUTO) 0 % (0-10); EOSINOPHILS % (AUTO) 0 % (0-10); HEMATOCRIT 36 % (35-52); HEMOGLOBIN 12.2 G/DL (11.5-16.0); LYMPHOCYTES # (AUTO) 1.8 X 10^3 (1.0-4.0); LYMPHOCYTES % (AUTO) 24 % (12-44); MEAN CORPUSCULAR HEMOGLOBIN 28 PG (25-34); MEAN CORPUSCULAR HGB CONC 34 G/DL (32-36); MEAN CORPUSCULAR VOLUME 83 FL (80-99); MONOCYTES # (AUTO) 0.4 X 10^3 (0.0-1.0); MONOCYTES % (AUTO) 6 % (0-12); NEUTROPHILS # (AUTO) 5.2 X 10^3 (1.8-7.8); NEUTROPHILS % (AUTO) 70 % (42-75); PLATELET COUNT 197 10^3/uL (130-400); RED CELL DISTRIBUTION WIDTH 14.9 % (10.0-14.5); WHITE BLOOD COUNT 7.4 10^3/uL (4.3-11.0)
[2020-02-11] MEDS ORDERED: SERT100T8 PO (23:11)
[2020-02-11] MEDS ORDERED: LIDOCAINE/EPI 2% 1:200,00 (XYLOCAINE) 20 ML VIAL ONE (23:11)
--- NOTE | 2020-02-11 23:13 | History & Physical-OB ---
OB - Chief Complaint & HPI Date/Time Date of Admission: Date of Admission: 02/11/20 Date seen by a Provider: February 11, 2020 Time Seen by a Provider: 23:08 Chief Complaint/History OB-Reason for Admission/Chief: Rupture of Membranes Hx : 2 Hx Para: 1 Expected Date of Delivery: Feb 24, 2020 Gestational Age in Weeks: 38 Gestational Age in Days: 1 Other reason for admission: at 38w1d, had spontaneous rupture of membranes at home at about 8 pm followed by onset of frequent intense contractions. complicated by history of lupus with positive lupus anticoagulant testing (x1, not yet repeated) and no history of clot or miscarriage. Per [facility] previous recommendations, had renal function checked each ttrimester and urine protein which were normal. Followed by weekly BPP since 34 weeks, 04/29 on 02/09 with EFW 7#15, NILDA 5.9. History of Labs A+, antibody neg, RI. HIV/HepB/RPR NR. Glucola neg. GBS pos. Other Lupus anticoagulant positive Allergies and Home Medications Allergies Coded Allergies: No Known Drug Allergies (Unverified , 07/22/14) Home Medications Vit/Iron Fumarate/FA 1 Each Tablet, 1 EACH PO DAILY, (Reported) Sertraline HCl 100 Mg Tablet, 150 MG PO DAILY, (Reported) Patient Home Medication List Home Medication List Reviewed: Yes OB - History Hx of Present Care: Yes Ultrasounds: Normal mid trimester US Medical Complications: Psychiatric (depression on sertraline), Other (History of lupus) Information Induced Hypertension: No Maternal Gestational Diabetes: No Hemorrhage: No Obstetrical History Hx : 2 Hx Para: 1 Hx # Term Pregnancies: 1 Hx # Pregnancies: 0 Number of Living Children: 1 Hx Termination: No Hx Multiple Gestation: No Hx Ectopic : No Hx Stillbirth: No Hx Complication: No Hx Induced Hypertens: No Hx Maternal Gestational Diabet: No Hx Hemorrhage: No Delivery History Hx Dystocia: No Hx Forceps Assisted Delivery: No Hx Vacuum Extraction Assisted: No Hx Placenta Abnormality: No Hx Distress: No Hx Large For Gestational Age I: No Hx Small for Gestational Age I: No Hx Section: No Hx Vaginal Delivery Post C-Sec: No Hx Blood Disorders: No Adverse Rxn to Tranfusion: No Patient Past Medical History PMHx: Lupus Depression SugHx: Breast biopsy Social History/Family History HIV/AIDS: No Recent Infectious Disease Expo: No Sexually Transmitted Disease: No Alcohol Use: Denies Use Recreational Drug Use: No Smoking Cessation: Never smoker Immunizations Tetanus Booster (TDap): Less than 5yrs Rubella: immune RPR/VDRL: Negative GBS Status: Positive HBsAG: Negative OB - Admission Exam Physical Exam HEENT: NCAT Cervical Dilatation: 6cm Effacement: 75% Amniotic Fluid: Clear Accelerations: Accelerations Present (baseline 165) Decelerations: Variable Decelerations Short Term Variability: Present Golf Cart Attendant Variability: Average (6-25) Contractions on Admission: < 5 Minutes Apart Date/Time Contractions Began;: 02/11/20 8 pm Intensity: Moderate Labs Laboratory Tests Test 02/11/20 22:45 Range/Units OB - Assessment/Plan/Diagnosis Assessment Assessment: active labor, rupture of membranes Admission Dx 38 weeks gestation Spontaneous rupture of membranes Active labor GBS positive Lupus with positive lupus anticoagulant but no history of blood clot or miscarriage Depression Admission Status: Inpatient Order (span 2 midnights) Reason for Inpatient Admission: Labor, delivery and course Plan Plan: Expectant Management Other Plan Ampicillin for GBS positive PETROS WILSON MD February 11, 2020 23:13
[2020-02-11] MEDS ORDERED: LACTATED RINGERS 1,000 ML IV SCH (23:37)
[2020-02-11] MEDS ORDERED: LIDOCAINE PF 2% 5 ML (XYLOCAINE) VIAL ONE (23:39)
[2020-02-11] MEDS ORDERED: NALOXONE 0.4 MG/ML 1 ML (NARCAN) VIAL IV PRN ×2 (23:45)
[2020-02-11] MEDS ORDERED: EPIDURAL (fentaNYL 2 MCG/ML BUPIVA 0.125%)100 ML BAG EPI SCH (23:45)
[2020-02-11] MEDS ORDERED: ONDANSETRON 4 MG/2 ML (SDV) Z0FRAN IV PRN (23:45)
[2020-02-11] MEDS ORDERED: METOCLOPRAMIDE INJ 10 MG/2 ML (REGLAN) IV PRN (23:45)
[2020-02-11] MEDS ORDERED: diphenhydrAMINE 50 MG/ML INJ (BENADRYL) IV PRN (23:45)
[2020-02-12] VITALS (15 sets, daily range): BP systolic 117–146; BP diastolic 64–77
[2020-02-12] MEDS ORDERED: MINERAL OIL CONCENTRATE 99.9% 15 ML UDC ONE (00:48)
[2020-02-12] MEDS: OXYTOCIN PRE-MIX DRIP 500 ML IV SCH ×2 (01:15→01:45)
--- NOTE | 2020-02-12 01:39 | OB Labor & Delivery Record ---
Vag Delivery Note Vag Delivery Note Date of Delivery: 02/12/20 Preoperative Diagnosis: Devorah Lund is a 29 /Para 2 / 1,Gestational Age (wks)37with 2 days Postoperative Diagnosis: Same Surgeon: PETROS WILSON Tire Adjuster: None Anesthesia: Epidural Delivery Type: Vacuum assisted vaginal delivery Findings: Viable male infant, apgars 2/7, weight 7#12 Lacerations: bilateral periurethral abrasion, first degree perineal Intact placenta with 3 vessel cord. Bandolero cord, no body cord or shoulder dystocia Estimated Blood Loss: 250 ml Complications: None Condition: Stable Description of Procedure: The patient is a 29 year old female who presented in active labor. She was admitted and informed consent was obtained. Her labor course was unremarkable. She progressed to complete dilatation and began to push. She was then set up for delivery. At 0053 heart rate dropped to the 80s while , however maternal pushing efforts did not successfully deliver head, so at 0059 Mityvac was applied, cup traced to ensure no maternal tissue entrapment, pressure increased to 45 cmHg and traction was applied perpendicularly and infant was delivered with the first push in the occiput anterior position at 0100. The shoulders and remainder of the infant's body were then delivered without difficulty. Upon delivery, the head was held below the level of the perineum and the mouth and nares were bulb suctioned. The cord was doubly clamped and cut and the was handed off to the pediatric staff. An intact placenta with 3-vessel cord delivered via Angelito and there was found to be minimal bleeding.~ Vigorous fundal massage was performed and the fundus was found to be firm. IV oxytocin was given. Examination of the vagina and perineum revealed a bilateral periurethral abrasion and first degree perineal laceration repaired in the usual fashion with 3-0 vicryl rapide suture. Following the repair, sponge, instrument and needle counts were correct. Mom and baby were both in stable condition in the labor suite. Vitals - Labs Vital Signs - I&O Vital Signs Date Time Temp Pulse Resp B/P (MAP) Pulse Ox O2 Delivery O2 Flow Rate FiO2 02/11/20 23:45 102 18 146/69 (94) 99 Room Air 02/11/20 23:30 36.4 101 18 145/84 (104) 98 Room Air 02/11/20 23:00 36.8 104 18 131/86 (101) 98 Room Air Labs Laboratory Tests 02/11/20 22:45: White Blood Count 7.4, Red Blood Count 4.33L, Hemoglobin 12.2, Hematocrit 36, Mean Corpuscular Volume 83, Mean Corpuscular Hemoglobin 28, Mean Corpuscular Hemoglobin Concent 34, Red Cell Distribution Width 14.9H, Platelet Count 197, Mean Platelet Volume 11.0H, Neutrophils (%) (Auto) 70, Lymphocytes (%) (Auto) 24, Monocytes (%) (Auto) 6, Eosinophils (%) (Auto) 0, Basophils (%) (Auto) 0, Neutrophils # (Auto) 5.2, Lymphocytes # (Auto) 1.8, Monocytes # (Auto) 0.4, Eosinophils # (Auto) 0.0, Basophils # (Auto) 0.0 PETROS WILSON MD February 12, 2020 01:39
[2020-02-12] MEDS ORDERED: WITCH HAZEL(TUCKS) 40 EA JAR TOP PRN (01:45)
[2020-02-12] MEDS ORDERED: BENZOCAINE/MENTHOL (DERMOPLAST) 60 ML CAN TP PRN (01:45)
--- NOTE | 2020-02-12 03:40 | NUR ---
Epidural cath removed, cath tip in tact, pt assisted standby to bathroom, pericare pads and gown changed, first void since delivery, pt standby to wc and tx to pp room 310. Oriented to call system, surroundings and info packet, denies needs, will cont to monitor.
[2020-02-12] MEDS ORDERED: fentaNYL INJECTION 100 MCG/2 ML AMP IVP ONE (04:00)
[2020-02-12] MEDS: IBUPROFEN 600 MG (MOTRIN) TAB PO SCH ×4 (04:17→21:25)
[2020-02-12] MEDS ORDERED: CATHETER FLUSH 10 ML SYR IV SCH ×2 (06:00)
[2020-02-12] MEDS ORDERED: NON-FORMULARY MEDICATION 1 EA EA (Prenatal Vit/Iron Fumarate/FA (Prenatal Tablet) 1 EACH) PO SCH (09:00)
[2020-02-12] MEDS: DOCUSATE SODIUM 100 MG (COLACE) CAP PO SCH ×2 (09:42→21:25)
[2020-02-12] MEDS: PRENATAL VITAMIN 1 EA TAB PO SCH (09:43)
[2020-02-12] MEDS: SERTRALINE 100 MG (ZOLOFT) TAB PO SCH (09:44)
--- NOTE | 2020-02-12 09:46 | Anesthesia-Regional Post-Op ---
Regional Patient Condition Mental Status: Alert, Oriented x3 Circulation: Same as Pre-Op Headache: Absent Sensation: Full Recovery Motor Block: Absent Post Op Complications Complications None Follow Up Care/Instructions Patient Instructions None needed. Anesthesia/Patient Condition Patient is doing well, no complaints, stable vital signs, no apparent adverse anesthesia problems. No complications reported per nursing. NOAH BLUM CRNA February 12, 2020 09:46
--- NOTE | 2020-02-12 10:22 | NUR ---
Pt states she had Tdap vaccine in office.
[2020-02-12] MEDS ORDERED: AMPICILLIN FOR IV USE 2,000 MG in WATER (STERILE) FOR INJECTION 14.8 ML IV SCH (11:24)
--- NOTE | 2020-02-12 20:00 | NUR ---
pt resting in bed. assessment completed. pt denies any needs. s/o remains at bedside. will continue to monitor.
[2020-02-13 01:49] VITALS: BP 135/63
[2020-02-13 05:09] LABS: BASOPHILS % (AUTO) 0 % (0-10); EOSINOPHILS % (AUTO) 1 % (0-10); HEMATOCRIT 33 % (35-52); HEMOGLOBIN 10.7 G/DL (11.5-16.0); LYMPHOCYTES # (AUTO) 2.2 X 10^3 (1.0-4.0); LYMPHOCYTES % (AUTO) 36 % (12-44); MEAN CORPUSCULAR HEMOGLOBIN 28 PG (25-34); MEAN CORPUSCULAR HGB CONC 32 G/DL (32-36); MEAN CORPUSCULAR VOLUME 86 FL (80-99); MONOCYTES # (AUTO) 0.4 X 10^3 (0.0-1.0); MONOCYTES % (AUTO) 6 % (0-12); NEUTROPHILS # (AUTO) 3.5 X 10^3 (1.8-7.8); NEUTROPHILS % (AUTO) 58 % (42-75); PLATELET COUNT 151 10^3/uL (130-400); RED CELL DISTRIBUTION WIDTH 14.9 % (10.0-14.5); WHITE BLOOD COUNT 6.1 10^3/uL (4.3-11.0)
[2020-02-13] MEDS: IBUPROFEN 600 MG (MOTRIN) TAB PO SCH ×3 (05:29→18:39)
--- NOTE | 2020-02-13 06:36 | Progress Note ---
Subjective Subjective/Events-last exam Afebrile, bleeding "normal", denies dizziness, chest pain, shortness of breath. Objective Exam Last Set of Vital Signs Vital Signs Date Time Temp Pulse Resp B/P (MAP) Pulse Ox O2 Delivery O2 Flow Rate FiO2 02/13/20 01:49 36.5 72 16 135/63 (87) 98 Room Air Capillary Refill : Less Than 3 Seconds General: Alert, No Acute Distress Lungs: Clear to Auscultation, Normal Air Movement Heart: Regular Rate, No Murmurs Neuro: Normal Speech Psych/Mental Status: Mental Status NL Results/Procedures Lab Laboratory Tests 02/13/20 04:30: White Blood Count 6.1, Red Blood Count 3.86L, Hemoglobin 10.7L, Hematocrit 33L, Mean Corpuscular Volume 86, Mean Corpuscular Hemoglobin 28, Mean Corpuscular Hemoglobin Concent 32, Red Cell Distribution Width 14.9H, Platelet Count 151, Mean Platelet Volume 11.0H, Neutrophils (%) (Auto) 58, Lymphocytes (%) (Auto) 36, Monocytes (%) (Auto) 6, Eosinophils (%) (Auto) 1, Basophils (%) (Auto) 0, Neutrophils # (Auto) 3.5, Lymphocytes # (Auto) 2.2, Monocytes # (Auto) 0.4, Eosinophils # (Auto) 0.0, Basophils # (Auto) 0.0 Assessment/Plan Assessment/Plan (1) Normal vaginal delivery Status: Acute Assessment & Plan: Routine care (2) Lupus (systemic lupus erythematosus) Status: Chronic Assessment & Plan: Inactive, not on current treatment. (3) Depression Status: Chronic Assessment & Plan: Continue sertraline. (4) anemia Status: Acute Assessment & Plan: Start iron daily. Clinical Quality Measures DVT/VTE Risk/Contraindication: Risk Factor Score Per Nursin RFS Level Per Nursing on Admit: 1=Low/No VTE PPX PETROS WILSON MD February 13, 2020 06:36
[2020-02-13] MEDS ORDERED: FERROUS SULF 325 MG (IRON) TAB PO SCH (07:00)
[2020-02-13] MEDS: PRENATAL VITAMIN 1 EA TAB PO SCH (10:26)
[2020-02-13] MEDS: SERTRALINE 100 MG (ZOLOFT) TAB PO SCH (10:27)
[2020-02-13] MEDS: DOCUSATE SODIUM 100 MG (COLACE) CAP PO SCH ×2 (10:27→21:50)
[2020-02-13 10:30] VITALS: BP 133/65
--- NOTE | 2020-02-13 10:35 | NUR ---
PT RESTING IN BED. SELF INTRODUCED. MEDS GIVEN PO; SEE EMAR FOR FURTHER. VS OBTAINED. INITIAL SHIFT ASSESSMENT COMPLETED; SEE INTERVENTION FOR FURTHER. PT DENIES ANY NEEDS OR QUESTIONS AT THIS TIME. CALL LIGHT WITHIN REACH.
[2020-02-13 12:55] VITALS: BP 131/66
--- NOTE | 2020-02-13 12:57 | NUR ---
PT SITTING UP IN BED. VS OBTAINED. ROUTINE MOTRIN GIVEN PO; SEE EMAR FOR FURTHER. PT INFANT @ THIS TIME. NO NEEDS VOICED. CALL LIGHT WITHIN REACH.
[2020-02-13] MEDS ORDERED: IBUP-844 PO (16:52)
[2020-02-13] MEDS ORDERED: DCS100C PO (16:52)
[2020-02-13] MEDS ORDERED: FERR325T18 PO (16:52)
[2020-02-13 18:38] VITALS: BP 133/64
--- NOTE | 2020-02-13 18:40 | NUR ---
PT IN BED, S/O @ THE BEDSIDE. VS OBTAINED. ROUTINE MOTRIN GIVEN PO; SEE EMAR FOR FURTHER. PT DENIES ANY NEEDS AT THIS TIME. CALL LIGHT WITHIN REACH.
--- NOTE | 2020-02-13 20:05 | NUR ---
INFANT IN ROOM WITH PT. PT DENIES ANY NEEDS OR C/O'S AT THIS TIME.
--- NOTE | 2020-02-13 21:15 | NUR ---
PT UP AMB IN [place] WITH AND IN OPEN CRIB. PT DENIES ANY PAIN, NEEDS OR C/O'S.
[2020-02-14 00:10] VITALS: BP 140/84
--- NOTE | 2020-02-14 00:10 | NUR ---
MOTRIN ADMINISTERED PER ORDERS. PT SITTING UP PREPARING TO FEED INFANT. FUSSY AT THIS TIME. PT DENIES ANY NEEDS AT THIS TIME.
[2020-02-14] MEDS: IBUPROFEN 600 MG (MOTRIN) TAB PO SCH ×2 (00:17→10:15)
--- NOTE | 2020-02-14 02:15 | NUR ---
PT SITTING UP IN BED . PT DENIES ANY NEEDS OR PAIN .
--- NOTE | 2020-02-14 03:15 | NUR ---
PT TRYING TO REST WHILE INFANT RESTS. PT DENIES ANY NEEDS OR C/O'S.
--- NOTE | 2020-02-14 08:03 | Discharge Summary ---
Discharge Summary Hospital Course Problems/Diagnosis: (1) Normal vaginal delivery Status: Acute Assessment & Plan: Uncomplicated course (2) Lupus (systemic lupus erythematosus) Status: Chronic Assessment & Plan: Inactive, not on current treatment. (3) Depression Status: Chronic Assessment & Plan: Continue sertraline. (4) anemia Status: Acute Assessment & Plan: Start iron daily. Hospital Course Date of Admission: February 11, 2020 at 22:30 Admission Diagnosis : Family Physician/Provider: Petros Espinosa MD Date of Discharge: 02/14/20 Discharge Diagnosis: See problem list Hospital Course: 29 yo G2 now P2 came to hospital with rupture of membranes and active labor, had vacuum assisted vaginal delivery (at , due to bradycardia) with first degree laceration repair and uncomplicated course. Labs and Pending Lab Test: Home Meds Active Dok (Docusate Sodium) 100 Mg Capsule 100 Mg PO BID Ibu (Ibuprofen) 600 Mg Tablet 600 Mg PO Q6HR PRN Ferrous Sulfate 325 Mg Tablet 325 Mg PO DAILY@0700 Reported Sertraline HCl 100 Mg Tablet 150 Mg PO DAILY Tablet ( Vit/Iron Fumarate/FA) 1 Each Tablet 1 Each PO DAILY Assessment/Pt DC Instructions Follow up with Dr. Espinosa in 6 weeks for visit. Discharge Diet: Regular Diet Activity as Tolerated: Yes (avoid strenuous activity x 6 weeks) Discharge Physical Examination Allergies: Coded Allergies: No Known Drug Allergies (Unverified , 07/22/14) General Appearance: No Apparent Distress, WD/WN Respiratory: Lungs Clear, Normal Breath Sounds Cardiovascular: Regular Rate, Rhythm, No Murmur Neurologic/Psychiatric: Alert, Normal Mood/Affect Clinical Quality Measures DVT/VTE Risk/Contraindication: Risk Factor Score Per Nursin RFS Level Per Nursing on Admit: 1=Low/No VTE PPX PETROS ESPINOSA MD February 14, 2020 08:03
[2020-02-14 10:00] VITALS: BP 144/92
--- NOTE | 2020-02-14 10:30 | NUR ---
AKHIL MCALLISTER demonstrates understanding of discharge instructions and accurately returns instructions upon questioning. Copy of Post-Discharge Instructions and Medication Discharge Instructions given to patient. AKHIL MCALLISTER is able to manage continuing needs after discharge. Patients belongings returned to patient. Skin dry and intact; no breakdown noted. Patient discharged from 3310-1 on 02-14-20 at 1030. AKHIL MCALLISTER left floor via ambulation, accompanied by s/o and staff.
== END 2020-02-14 10:30 | disposition home or self-care (01) | DRG 807 ==
LOC: WSo 22:12 → LDRP 22:13 → WSo 22:30 → LDRP 02-12 03:40
PROVIDERS: ADMIT Family Medicine; ATTEND Family Medicine
PROC: 10D07Z6 Extraction of Products of Conception, Vacuum, Via Natural or Artificial Opening (ICD-10-PCS; principal; 2020-02-12)
PROC: 0HQ9XZZ Repair Perineum Skin, External Approach (ICD-10-PCS; 2020-02-12)
DX: O99.824 Streptococcus B carrier state complicating childbirth (principal); O70.0 First degree perineal laceration during delivery; O76 Abnormality in fetal heart rate and rhythm complicating labor and delivery; O26.893 Other specified pregnancy related conditions, third trimester; M32.9 Systemic lupus erythematosus, unspecified; O99.344 Other mental disorders complicating childbirth; F32.9 Major depressive disorder, single episode, unspecified; O90.81 Anemia of the puerperium; D64.9 Anemia, unspecified; Z37.0 Single live birth; Z3A.38 38 weeks gestation of pregnancy
CPT/HCPCS: 36415; 85025; 86780; 86850; 86900; 86901; 99212

== ENCOUNTER 2022-01-23 14:05 | Emergency (ER) | payer MEDICAID ==
[~2022-01-23] VITALS: Ht 162 cm; Wt 68.0 kg
[~2022-01-23 14:05] MED LIST changes: +DOCU-239 PO; +FERR325T18 PO; +SERT-414 PO
[2022-01-23 14:24] LABS: BILIRUBIN,URINE NEGATIVE (NEGATIVE); CLARITY,URINE CLEAR; COLOR,URINE YELLOW; GLUCOSE, URINE (UA) NEGATIVE (NEGATIVE); KETONES,URINE NEGATIVE (NEGATIVE); LEUKOCYTE ESTERASE ,URINE NEGATIVE (NEGATIVE); NITRITE,URINE NEGATIVE (NEGATIVE); PROTEIN,URINE NEGATIVE (NEGATIVE)
[2022-01-23] MEDS ORDERED: KETOROLAC 60 MG/2 ML VIAL IM ONE (14:30)
[2022-01-23] MEDS ORDERED: ORPHENADRINE 60 MG/2 ML (NORFLEX) AMP (ED ONLY) IM ONE (14:30)
--- NOTE | 2022-01-23 14:34 | ED Back Pain ---
General Chief Complaint: Back Problems Stated Complaint: BACK PAIN Nursing Triage Note: PT PRESENTS TO ED VIA POV FROM HOME WITH COMPLAINTS OF CHRONIC BACK PAIN THAT IS WORSE THIS AM. PT STATES SHE STRUGGLED TO GET OUT OF BED THIS AM AND HER PRESCRIPTIONS FOR HER BACK PAIN ARE NOT HELPING. Source of Information: Patient Exam Limitations: No Limitations History of Present Illness Date Seen by Provider: January 23, 2022 Time Seen by Provider: 14:30 Initial Comments Patient is a 31-year-old female who presents ED with lower back pain. Patient states she has had back pain for the past 6 months and has progressively worsened. Pain became worse yesterday went to [facility] received a RingTu id shot. She woke up this morning with worsening pain was difficulty getting up and ambulating. Pain is described as a squeezing sensation and appears to be intermittent radiating down to her right foot. Denies of any specific weakness but reports she is having difficulty walking. Denies of any bowel or urine incontinence, saddle paresthesia, fever, drug use, night sweats. She states this was likely secondary to an injury when moving it back in July. Has not had any previous imaging. She currently is seeing a chiropractor without much improvement. Allergies and Home Medications Allergies Coded Allergies: No Known Drug Allergies (Unverified , 07/22/14) Patient Home Medication List Home Medication List Reviewed: Yes Docusate Sodium (Dok) 100 Mg Capsule, 100 MG PO BID Prescribed by: PETROS WILSON on 02/13/20 165 Ferrous Sulfate (Ferrous Sulfate) 325 Mg Tablet, 325 MG PO DAILY@0700 Prescribed by: PETROS WILSON on 02/13/20 165 Hydrocodone/Acetaminophen (Hydrocodone-Acetamin 5-325 mg) 5 Mg-325 Mg Tablet, 1 TAB PO Q4H PRN for PAIN-MODERATE (5-7) Prescribed by: AMOS BECK on 01/23/22 1550 Ibuprofen (Ibu) 600 Mg Tablet, 600 MG PO Q6HR PRN for PAIN-MODERATE (5-7) Prescribed by: PETROS WILSON on 02/13/20 165 Ibuprofen (Ibuprofen) 600 Mg Tablet, 600 MG PO Q6H Prescribed by: AMOS BECK on 01/23/22 1549 Methylprednisolone (Medrol Dose pack) 4 Mg Tab, 4 MG PO UD Prescribed by: AMOS BECK on 01/23/22 1549 Vit/Iron Fumarate/FA ( Tablet) 1 Each Tablet, 1 EACH PO DAILY, (Reported) Entered as Reported by: RADHA BERGERON on 01/26/18 1745 Sertraline HCl (Sertraline HCl) 100 Mg Tablet, 150 MG PO DAILY, (Reported) Entered as Reported by: PETROS WILSON on 02/11/20 2311 Review of Systems Constitutional: No chills, No diaphoresis EENTM: No ear pain, No blurred vision, No double vision Respiratory: No cough, No dyspnea on exertion, No hemoptysis, No orthopnea Cardiovascular: No chest pain, No edema Gastrointestinal: No abdominal pain, No diarrhea, No dysphagia, No nausea, No vomiting Genitourinary: No decreased output, No discharge Musculoskeletal: back pain; No joint pain Skin: No change in color, No change in hair/nails All Other Systems Reviewed Negative Unless Noted: Yes Past Jtugtlw-Kkyhpl-Bjwtic Hx Patient Social History Tobacco Use?: No Substance use?: No Alcohol Use?: No Pt feels they are or have been: No Immunizations Up To Date Tetanus Booster (TDap): Less than 5yrs PED Vaccines UTD: Yes First/Initial COVID19 Vaccinat: YES 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: [employer] Seasonal Allergies Seasonal Allergies: No Past Medical History Surgery/Hospitalization HX: LUPUS, SCIATICA Surgeries: Yes Respiratory: No Cardiac: No Neurological: No Reproductive Disorders: No Female Reproductive Disorders: Denies Sexually Transmitted Disease: No HIV/AIDS: No Genitourinary: No Gastrointestinal: No Musculoskeletal: No Endocrine: Yes HEENT: No Cancer: No Psychosocial: Yes Anxiety, Depression Integumentary: No Blood Disorders: No Adverse Reaction/Blood Tranf: No Family Medical History Diabetes mellitus 19 MOTHER Hypertension 19 FATHER 19 MOTHER Neoplasm 19 FATHER No Pertinent Family Hx Physical Exam Vital Signs Vital Signs - First Documented 01/23/22 14:21 Temp 36.0 Pulse 99 Resp 18 B/P (MAP) 149/100 (116) Pulse Ox 98 Capillary Refill : Less Than 3 Seconds Height, Weight, BMI Height: 5'4.00" Weight: 161lbs. 0.0oz. 73.753746pc; 25.00 BMI Method: General Appearance: No Apparent Distress, WD/WN HEENT: PERRL/EOMI, TMs Normal, Normal ENT Inspection, Pharynx Normal Neck: Full Range of Motion, Normal Inspection, Non Tender, Supple Cardiovascular: Regular Rate, Rhythm, No Edema, No Gallop, No JVD, No Murmur Respiratory: Chest Non Tender, Lungs Clear, Normal Breath Sounds, No Accessory Muscle Use, No Respiratory Distress Gastrointestinal: Normal Bowel Sounds, No Organomegaly, No Pulsatile Mass, Non Tender, Soft Back: Vertebral Tenderness (Lumbar midline tenderness) Extremity: Normal Capillary Refill, Normal Inspection, Normal Range of Motion, Other (Positive straight leg raise right leg. Dorsiflexion plantarflexion bilateral lower 5/5. Flexion extension right knee 5 out of 5 strength.) Neurologic/Psychiatric: Alert, Oriented x3, No Motor/Sensory Deficits, Normal Mood/Affect, agriculturist II-XII Norm as Tested Skin: Normal Color, Warm/Dry Progress/Results/Core Measures Results/Orders Lab Results Laboratory Tests Test 01/23/22 14:17 Range/Units Urine Color YELLOW Urine Clarity CLEAR Urine pH 7.0 5-9 Urine Specific [place] 1.015 L 1.016-1.022 Urine Protein NEGATIVE NEGATIVE Urine Glucose (UA) NEGATIVE NEGATIVE Urine Ketones NEGATIVE NEGATIVE Urine Nitrite NEGATIVE NEGATIVE Urine Bilirubin NEGATIVE NEGATIVE Urine Urobilinogen 0.2 < = 1.0 MG/DL Urine Leukocyte Esterase NEGATIVE NEGATIVE Urine RBC (Auto) 2+ H NEGATIVE Urine RBC 5-10 H /HPF Urine WBC 0-2 /HPF Urine Squamous Epithelial Cells 0-2 /HPF Urine Crystals NONE /LPF Urine Bacteria TRACE /HPF Urine Casts NONE /LPF Urine Mucus NEGATIVE /LPF Urine Culture Indicated NO Urine Test NEGATIVE NEGATIVE My Orders Orders - TADEO HAWKINS Ua Culture If Indicated (01/23/22 14:17) Hcg,Qualitative Urine (01/23/22 14:17) Ct Lumbar Spine Wo (01/23/22 14:28) Ketorolac Injection (Toradol Injection) (01/23/22 14:30) Orphenadrine Inj (Ed Only) (Norflex Inje (01/23/22 14:30) Medications Given in ED Current Medications Medications Dose Ordered Sig/Karrie Route Start Time Stop Time Status Last Admin Dose Admin Ketorolac Tromethamine 30 mg ONCE ONCE IM 01/23/22 14:30 01/23/22 14:31 DC 01/23/22 14:38 30 MG Orphenadrine Citrate 60 mg ONCE ONCE IM 01/23/22 14:30 01/23/22 14:31 DC 01/23/22 14:39 60 MG Vital Signs/I&O 01/23/22 01/23/22 14:21 15:59 Temp 36.0 Pulse 99 70 Resp 18 16 B/P (MAP) 149/100 (116) 123/74 Pulse Ox 98 98 Blood Pressure Mean: 116 Departure Communication (PCP) Patient presents ED with ongoing pain in her back with radiculopathy pain right leg. This appears to be secondary to lifting while moving during July. This pain is intermittent but became worse last night and this morning. She has no neurological red flag findings such as bowel or urine incontinence saddle paresthesia. No fever, chills, weight loss. Denies drug use. Was given Toradol and Norflex here. Due to the length of pain and symptoms CT scan was ordered that showed large disc extrusion at L5-S1 resulting in moderate to severe spinal stenosis and complete effacement of the right lateral recess. There is also high-grade bilateral neural foraminal narrowing at L5-S1 greater on the right. Due to the length of symptoms and severity of her disc extrusion and moderate to severe spinal stenosis patient would likely benefit following up with neurosurgeon. Patient was given referral to [facility]. She does have a primary care physician who I recommend following up and discuss further potential treatment options. Would likely benefit with pain management as well. Patient does not have any lower right leg weakness. I will prescribe pain medication, Medrol Dosepak and ibuprofen. Provided work note. If any worsening symptoms such as bowel or urine cons, saddle paresthesia, right leg weakness to return back to ED. Provided outpatient MRI for further evaluation. Patient with a stable gait. Urinalysis negative for infection. Did show some hematuria but she is currently on her menstrual cycle. Impression Primary Impression: Lumbar radiculopathy Disposition: HOME, SELF-CARE Condition: Stable Departure-Patient Inst. Decision time for Depature: 15:48 Referrals: [facility]/PETROS MIMS MD (PCP/Family) Primary Care Physician Patient Instructions: Radiculopathy Add. Discharge Instructions: Recommend contacting [facility] [phone] All discharge instructions reviewed with patient and/or family. Voiced understanding. Scripts Ibuprofen (Ibuprofen) 600 Mg Tablet 600 MG PO Q6H for PAIN, #20 TAB 0 Refills Prov: TADEO HAWKINS 01/23/22 Hydrocodone/Acetaminophen (Hydrocodone-Acetamin 5-325 mg) 5 Mg-325 Mg Tablet 1 TAB PO Q4H PRN for PAIN-MODERATE (5-7), #10 TAB Prov: TADEO HAWKINS 01/23/22 Methylprednisolone (Medrol Dose pack) 4 Mg Tab 4 MG PO UD for 6 Days, #21 TAB as directed per dose pack Prov: TADEO HAWKINS 01/23/22 Work/School Note: Work Release Form Date Seen in the Emergency Department: January 23, 2022 Return to Work: January 28, 2022 TADEO HAWKINS January 23, 2022 14:34
[2022-01-23 14:36] LABS: BACTERIA,URINE TRACE /HPF; SQUAMOUS EPITHELIAL CELL,UR 0-2 /HPF; WBC,URINE 0-2 /HPF
--- NOTE | 2022-01-23 15:11 | Diagnostic Imaging Report ---
PROCEDURE: CT lumbar spine without contrast. TECHNIQUE: Multiple contiguous axial images were obtained through the lumbar spine without the use of intravenous contrast. Sagittal and coronal reformations were then performed. Auto Exposure Controls were utilized during the CT exam to meet ALARA standards for radiation dose reduction. INDICATION: Fall. Back pain. COMPARISON: None. FINDINGS: Normal alignment. Vertebral body heights are preserved. No fractures. Mild degenerative endplate changes at L5-S1. The visualized pelvis is intact. Soft tissue windows demonstrate large right central through right foraminal disc extrusion at L5-S1 that results in [id number] spinal canal stenosis and complete effacement of the right lateral recess. Severe right neural foraminal narrowing, moderate on the left. Punctate nonobstructing calyceal tip renal stones in the lower pole of the right kidney. Visualized paravertebral soft tissues are unremarkable. IMPRESSION: 1. No acute osseous findings in the lumbar spine. 2. Large disc extrusion at L5-S1 results in [id number] spinal canal stenosis and complete effacement of the right lateral recess. There is also high-grade bilateral neural foraminal narrowing at L5-S1, greater on the right. These findings would account for a right L5 and S1 radiculopathy. Dictated by: Dictated on workstation # [id number]
[2022-01-23] MEDS ORDERED: NF-METHYLP PO (15:49)
[2022-01-23] MEDS ORDERED: IBUP-1773 PO (15:49)
[2022-01-23] MEDS ORDERED: ACHD5005 PO (15:49)
[2022-01-23 15:59] VITALS: BP 123/74
== END 2022-01-23 15:58 | disposition home or self-care (01) ==
LOC: EDUNIT# 14:05 → ER 14:07
DX: M54.16 Radiculopathy, lumbar region (principal); R31.9 Hematuria, unspecified; Z32.02 Encounter for pregnancy test, result negative
CPT/HCPCS: 72131; 81000; 84703; 99284

== ENCOUNTER 2022-02-02 11:26 | Emergency (ER) | payer MEDICAID ==
[~2022-02-02] VITALS: Ht 167 cm; Wt 77.0 kg
[~2022-02-02 11:26] MED LIST changes: +ACHD5005 PO; +IBUP-1773 PO; +NF-METHYLP PO
[2022-02-02] MEDS ORDERED: morphine INJ 10 MG/ML 1ML (SYR OR VIAL) IM STA (12:29)
--- NOTE | 2022-02-02 12:33 | ED Back Pain ---
General Chief Complaint: Back Problems Stated Complaint: BACK PAIN/HERNIATED DISC Nursing Triage Note: PT PRESENTS TO ED VIA POV FROM HOME WITH COMPLAINTS OF CONTINUED LOW BACK PAIN THAT RADIATES TO HER PELVIS AND R LEG. Source of Information: Patient Exam Limitations: No Limitations History of Present Illness Date Seen by Provider: February 02, 2022 Time Seen by Provider: 12:08 Initial Comments Here with report of continued low back pain on the right. States that emanates on the right side and goes down the right leg all the way to the toes. Radiates to the buttocks and pelvis. Has known L5-S1 disc folds from CT scan done on 01/23/2022. In the emergency department. She was recommended to have MRI and she is working with her provider to get that done. They have initiated diclofenac and gabapentin which are not helping. Previous dosing Medrol Dosepak did help some pain worsened again. MRI ordered by provider here was not excepted and her provider has not ordered 1 unit per. She denies numbness between her legs or weakness of the legs. She denies bowel or bladder incontinence currently. The ibuprofen is not significantly helping the pain currently. She is frustrated with her PCP care and difficulty with getting MRI. Location: Lumbar Spine Timing/Duration: Changing Over Time, Getting Worse, Other (2 to 3 weeks) Severity: Moderate Pain/Injury Location: Back Radiation: Buttocks, Feet, Lower Legs, Upper Legs Method of Injury: Other (Disc bulge) Modifying Factors: Worse With Movement; Improves With Pain Medication Associated Symptoms: muscle spasms; No fever, No weakness, No numbness in legs/feet, No tingling in legs/feet, No sensory/motor loss; lower back pain; No loss of bladder control, No loss of bowel control Allergies and Home Medications Allergies Coded Allergies: No Known Drug Allergies (Unverified , 07/22/14) Patient Home Medication List Home Medication List Reviewed: Yes Docusate Sodium (Dok) 100 Mg Capsule, 100 MG PO BID Prescribed by: PETROS WILSON on 02/13/201651 Ferrous Sulfate (Ferrous Sulfate) 325 Mg Tablet, 325 MG PO DAILY@0700 Prescribed by: PETROS WILSON on 02/13/201651 Hydrocodone/Acetaminophen (Hydrocodone-Acetamin 5-325 mg) 5 Mg-325 Mg Tablet, 1 TAB PO Q4H PRN for PAIN-MODERATE (5-7) Prescribed by: AMOS BECK on 01/23/22 1550 Ibuprofen (Ibu) 600 Mg Tablet, 600 MG PO Q6HR PRN for PAIN-MODERATE (5-7) Prescribed by: PETROS WILSON on 02/13/20 1652 Ibuprofen (Ibuprofen) 600 Mg Tablet, 600 MG PO Q6H Prescribed by: AMOS BECK on 01/23/22 1549 Methylprednisolone (Medrol Dose pack) 4 Mg Tab, 4 MG PO UD Prescribed by: AMOS BECK on 01/23/22 1549 Vit/Iron Fumarate/FA ( Tablet) 1 Each Tablet, 1 EACH PO DAILY, (Reported) Entered as Reported by: RADHA BERGERON on 01/26/18 1745 Sertraline HCl (Sertraline HCl) 100 Mg Tablet, 150 MG PO DAILY, (Reported) Entered as Reported by: PETROS WILSON on 02/11/20 2311 Review of Systems Constitutional: see HPI; No chills, No fever Respiratory: No cough, No short of breath Cardiovascular: No chest pain, No edema Gastrointestinal: No nausea, No vomiting Genitourinary: No decreased output, No incontinence Musculoskeletal: back pain, muscle pain Skin: no symptoms reported Psychiatric/Neurological: See HPI Past Gclsrhs-Clfnco-Wymblw Hx Patient Social History Tobacco Use?: No Substance use?: No Alcohol Use?: No Pt feels they are or have been: No Immunizations Up To Date Tetanus Booster (TDap): Less than 5yrs PED Vaccines UTD: Yes First/Initial COVID19 Vaccinat: YES Second COVID19 Vaccination Juanito: YES Third COVID19 Vaccination Date: YES Seasonal Allergies Seasonal Allergies: No Past Medical History Surgery/Hospitalization HX: LUPUS, SCIATICA Surgeries: Yes Respiratory: No Cardiac: No Neurological: No Reproductive Disorders: No Female Reproductive Disorders: Denies Sexually Transmitted Disease: No HIV/AIDS: No Genitourinary: No Gastrointestinal: No Musculoskeletal: No Endocrine: Yes HEENT: No Cancer: No Psychosocial: Yes Anxiety, Depression Integumentary: No Blood Disorders: No Adverse Reaction/Blood Tranf: No Family Medical History Reviewed Nursing Family Hx Diabetes mellitus 19 MOTHER Hypertension 19 FATHER 19 MOTHER Neoplasm 19 FATHER Physical Exam Vital Signs Vital Signs - First Documented 02/02/22 12:23 Temp 36.6 Pulse 91 Resp 18 B/P (MAP) 119/78 (92) Pulse Ox 97 Capillary Refill : Less Than 3 Seconds Height, Weight, BMI Height: 5'4.00" Weight: 161lbs. 0.0oz. [id number]; 27.00 BMI Method: General Appearance: WD/WN, Mild Distress (Back pain) Cardiovascular: Regular Rate, Rhythm, No Murmur Respiratory: Lungs Clear, Normal Breath Sounds Gastrointestinal: Normal Bowel Sounds, Non Tender, Soft Extremity: Non Tender, No Calf Tenderness, No Pedal Edema Neurologic/Psychiatric: Alert, Oriented x3, No Motor/Sensory Deficits, Other (Appropriate sensation of her legs. normal movement and strength of both feet. Able to discern toe-touch and toe position bilateral.) Progress/Results/Core Measures Results/Orders My Orders Orders - NAGA MADDOX MD Morphine Injection (Morphine Injection (02/02/22 12:29) Vital Signs/I&O 02/02/22 12:23 Temp 36.6 Pulse 91 Resp 18 B/P (MAP) 119/78 (92) Pulse Ox 97 Blood Pressure Mean: 92 Progress Progress Note : Progress Note Seen and evaluated. Reviewed previous CT reviewed which shows disc bulge at L5- S1 on the right side likely causing symptoms. I did have in-depth discussion with her regarding management and warning signs including return precautions. We did discuss in depth regarding narcotic use and concerns for addiction reji goodwineliuvimal in setting of chronic back pain. We discussed multiple options for evaluation and therapy. She will continue to pursue outpatient evaluation with MRI and therapy and/or referral to orthopedics spine surgeon through her primary care doctor. Since steroids did help last time saw him, we will repeat that but use prednisone 40 mg daily for 7 days and a burst dose. I will write short prescription of narcotic and did emphasize use for as needed use only and not to take it scheduled due to concerns regarding narcotic abuse and addiction. Both patient and her were appreciative of the conversation and care and verbalized understanding. Discharged home with return precautions. Morphine 6 mg IM given for pain. Departure Impression Primary Impression: Lumbar radiculopathy Additional Impression: Bulging of lumbar intervertebral disc Disposition: HOME, SELF-CARE Condition: Stable Departure-Patient Inst. Decision time for Depature: 12:44 Referrals: [facility] (PCP) Primary Care Physician SONIA SALCEDO (Family) Primary Care Physician Patient Instructions: Radiculopathy (DC), Herniated Disc (DC) Add. Discharge Instructions: All discharge instructions reviewed with patient and/or family. Voiced understanding. Take previously prescribed medicines as instructed. Start new prescriptions as instructed. Use narcotics sparingly and only as needed. It is important that you get follow-up for MRI and referral to orthopedic spine surgeon as indicated. Return for worse pain, weakness, numbness between your legs, difficulty with walking or going to the bathroom or other concerns as needed. Scripts Hydrocodone Bit/Acetaminophen (HYDROcodone/APAP 5 MG/325 MG TAB) 1 Tab Tab 1 TAB PO Q6H for Pain, #14 TAB 0 Refills Prov: NAGA MADDOX MD 02/02/22 Prednisone (Prednisone) 20 Mg Tab 40 MG PO DAILY, #14 TAB 0 Refills Prov: NAGA MADDOX MD 02/02/22 NAGA MADDOX MD February 02, 2022 12:33
[2022-02-02] MEDS ORDERED: ACHD5005 PO (12:48)
[2022-02-02] MEDS ORDERED: PRD20T PO (12:48)
[2022-02-02 13:14] VITALS: BP 119/78
== END 2022-02-02 13:14 | disposition home or self-care (01) ==
LOC: EDUNIT# 11:26 → ER 11:27
DX: M51.17 Intervertebral disc disorders with radiculopathy, lumbosacral region (principal)
CPT/HCPCS: 99284